=== PATIENT | male | born 1980 | race Caucasian/White ===

== ENCOUNTER 2020-07-10 13:37 | Emergency (ER) | payer MEDICAID, SELFPAY ==
--- NOTE | 2020-07-10 | CT_ITS ---
EXAMINATION: CT ABDOMEN AND PELVIS WITHOUT CONTRAST CLINICAL INFORMATION: Right flank pain COMPARISON: 02/08/2017 TECHNIQUE: Multidetector volumetric imaging was performed from the superior aspect of the liver through the pubic symphysis. Sagittal and coronal reformatted images were obtained on the technologist's workstation. This CT examination was performed using dose optimization techniques as appropriate, variously including the following: *Automated exposure control *Adjustment of mA and/or kV according to patient size (this includes techniques or standardized protocols for targeted exams where dose is matched to indication/reason for exam; i.e. extremities or head) *Use of iterative reconstruction technique DLP: 460 mGy-cm FINDINGS: LUNG BASES: The visualized lung bases are unremarkable. LIVER, GALLBLADDER, AND BILIARY TREE: The liver is normal in size, shape, and attenuation. No focal hepatic lesion or biliary ductal dilatation is present. The gallbladder is unremarkable with no evidence of radiopaque gallstones, gallbladder wall thickening, or obvious pericholecystic inflammatory changes. PANCREAS: Unremarkable. SPLEEN: Unremarkable. ADRENAL GLANDS: Unremarkable. KIDNEYS AND URETERS: There is a 4 x 3 mm calculus in the distal right ureter with minimal hydroureteronephrosis. The location of this obstructing calculus is similar to that on the study dated 02/08/2017. There are a few punctate, nonobstructing calculi in both kidneys, the largest measuring 2 mm in the midpole of the left kidney. BLADDER: Unremarkable. GASTROINTESTINAL TRACT: The small and large bowel are unremarkable. The appendix is unremarkable. ABDOMINAL WALL: No significant hernia is appreciated. LYMPH NODES: Normal. VASCULAR: Unremarkable. PELVIC VISCERA: Unremarkable. OSSEOUS STRUCTURES: Unremarkable. IMPRESSION: There is a 4 x 3 mm obstructing calculus in the distal right ureter with minimal hydroureteronephrosis. Several faint, punctate calculi in both kidneys.
--- NOTE | 2020-07-10 14:19 | ED_ITS ---
HPI - Male Genitourinary General Chief complaint: Abdominal Pain Stated complaint: flank pain Time Seen by Provider: 07/10/20 14:15 Source: patient Mode of arrival: ambulatory Limitations: no limitations History of Present Illness HPI Narrative: Progressively worsening right-sided flank pain now radiating to the right side groin for the past 3 days. Had similar episode of pain several years ago where he had a kidney stone. Pain becoming more severe and now unbearable. There was some blood in the urine 3 days ago that resolved. There is no fever. No dysuria. No urethral discharge. No concern for STI. No previous history of STI or UTI. Onset (ago): day(s) (3 days ) Duration: constant Location: right inguinal region and right flank Radiation: abdomen Severity: severe Severity scale (1-10): 10 Quality: aching and sharp Relieving factors: none Exacerbating factors: none Associated symptoms: Reports denies other symptoms Related Data Previous Rx's Medication Instructions Recorded ibuprofen 800 mg PO Q8H PRN #30 tab 07/10/20 oxycodone 5 mg PO Q8H PRN #15 tab 07/10/20 tamsulosin [Flomax] 0.4 mg PO DAILY #7 cap 07/10/20 Allergies Allergy/AdvReac Type Severity Reaction Status Date / Time seafood Allergy Swelling Verified 07/10/20 14:24 Review of Systems Review of Systems: Constitutional: No Weight loss, No Fever, No Chills, No Night Sweats, No Fatigue, No Malaise ENT/Mouth: No Hearing loss, No Ear Pain, No Nasal Congestion, No Sinus Pain, No Hoarseness, No sore throat, No Rhinorrhea, No Swallowing Difficulty Eyes: No Eye Pain, No Swelling, No Redness, No Foreign Body, No Discharge, No Vision Changes Cardiovascular: No Chest Pain, No SOB, No Dyspnea on Exertion, No Orthopnea, No Edema, No Palpitations Respiratory: No Cough, No Sputum, No Wheezing, No Smoke Exposure, No Dyspnea Gastrointestinal: + Nausea, No Vomiting, No Diarrhea, No Constipation, + right flank/ abdominal Pain, No Hematochezia, No Melena Genitourinary: no irregular bleeding, No Dysuria, No Urinary Frequency, No Hematuria, No Urinary Incontinence, No Urgency, No Flank Pain, No Urinary Flow Changes, No Hesitancy Musculoskeletal: No joint pain, No Myalgias, No Joint Swelling Skin: No Skin Lesions, No rash Neuro: No Weakness, No Numbness, No Paresthesias, No Loss of Consciousness, No Dizziness, No Headache Psych: No Anxiety/Panic, No Depression, No SI/HI/AH/VH, No Social Issues, Heme/Lymph: No Bruising, No Bleeding,No Lymphadenopathy Endocrine: No Polyuria, No Polydipsia, No Temperature Intolerance Yes all other systems are reviewed and are negative [facility] Past Medical History Medical History (Updated 07/11/20 @ 00:00 by Emely Finch) Flank pain Surgical History No significant past surgical history Social History Social History Alcohol intake: never Smoking Status: Current some day smoker Use of substances other than those prescribed or required for medical reasons: Yes Substance Use Type: Marijuana Substance Use Frequency: Occasionally Advance Directives: No Advance Directives Information Provided: Yes Physical Exam Vital Signs and I&O and Narrative: Vital Signs and I&O: Vital Signs Temp 97.8 F 07/10/20 14:28 Pulse 71 07/10/20 14:28 Resp 14 07/10/20 14:28 BP 137/80 07/10/20 14:28 Pulse Ox 99 07/10/20 14:28 Intake & Output 07/10/20 07/11/20 07/11/20 18:59 06:59 18:59 Intake Total 1000 / 1000 Balance 1000 / 1000 Weight 68.039 kg Intake: Intake, IV Amoun t 1000 / 1000 0.9 % Sodium C hloride 1,000 ml 1000 / 1000 @ 999 mls/hr I VCONT .Q1H1M [facility] Rx#:[id number] Body Mass Index 25.7 Const: General: cooperative, healthy appearing and acute distress (in pain ); No intoxicated appearing Nutritional Appearance: average body habitus Orientation/consciousness: patient oriented x3 HENMT: Head: Yes normal to inspection Ears: hearing grossly normal bilaterally Eyes: General: appearance normal, both eyes and all related structures Neck: Neck: Yes normal visual inspection, Yes positive Brudzinski's sign, Yes positive Kernig's sign and Yes tender Thyroid: Thyroid normal Chest: Chest palpation & inspection: normal inspection of the chest Resp: Effort & Inspection: normal respiratory effort Cardio: Jugular venous distension: no JVD Rate: regular rate Rhythm: regular rhythm GI: Inspection: Yes normal to inspection Percussion: Yes normal to percussion Auscultation: normal bowel sounds : General: Yes CVA tenderness (right ) Back/Spine/Pelvis: Back: CVA tenderness (right ) Skin: General skin exam: no rashes or lesions noted Neuro: General: patient oriented x3 Extrem: General: Yes normal to inspection Course Course Course Narrative: Labs shows slight leukocytosis of 13 likely stress. UA positive RBC but no WBC, nitrate or bacteria. No findings consistent with infection. CT of the abdomen pelvis without contrast shows there is a 3 x 4 mm obstructing calculi in the distal right ureter with minimal hydronephrosis. Several faint puncture when calculi in the both kidneys. Patient received a single dose of IV Zofran and morphine and Flomax. He is currently pain free. Will discharge home with urine strainer, analgesia, NSAIDs and follow with Urology. Well nontoxic appearing. Stable for discharge. MDM - Male Genitourinary Differential Diagnosis Differential diagnosis: Likely urinary tract infection and urethritis ( renal calculi, hydro); Unlikely epididymitis, genital herpes simplex, prostatitis, acute retention of urine and inguinal hernia Lab Data Result diagrams: 07/10/20 15:13 07/10/20 16:39 Labs: Lab Results 07/10/20 07/10/20 07/10/20 Range/Units 15:13 15:13 15:13 WBC 13.6 H (4.8-10.8) X10*3/uL RBC 4.90 (4.60-5.80) X10*6/uL Hgb 14.9 (14.0-18.0) g/dl Hct 43.5 (42-52) % MCV 88.8 (80-98) fL MCH 30.4 (27.0-33.0) pg MCHC 34.3 (31.0-36.0) g/dl RDW 13.7 (11.0-16.0) % Plt Count 420 H (160-400) X10*3/uL MPV 9.9 (9.4-12.4) fL Immature Gran % (Auto) 0.2 (0.0-0.4) % Neut % (Auto) 73.4 H (45-73) % Lymph % (Auto) 19.7 L (20-40) % [place] % (Auto) 5.1 (2-11) % Eos % (Auto) 1.1 (0-4) % Baso % (Auto) 0.5 (0-2) % Neut # (Auto) 10.0 H (2.0-8.3) X10*3/uL Lymph # (Auto) 2.7 (1.2-4.9) X10*3/uL [place] # (Auto) 0.7 (0.1-1.2) X10*3/uL Eos # (Auto) 0.2 (0.0-0.4) X10*3/uL Baso # (Auto) 0.1 (0.0-0.2) X10*3/uL Abs Immat Gran (auto) 0.03 (0.00-0.03) X10*3/uL Absolute Nucleated RBC 0.000 (0.0-0.012) X10*3/uL Nucleated RBC % (auto) 0.0 (0.0-0.2) /100WBC Hold Blue Top SEE NOTE Sodium (135-145) mmol/L Potassium (3.3-5.1) mmol/l Chloride (96-108) mmol/L Carbon Dioxide (22-29) mmol/L Anion Gap (12-20) BUN (9-16) mg/dL Creatinine (0.5-1.4) mg/dL Estim Creat Clear Calc Estimated GFR Random Glucose (60-115) mg/dL Calcium (8.4-10.2) mg/dL Total Bilirubin (0.0-1.0) mg/dL Direct Bilirubin (0.0-0.5) mg/dL AST (5-37) U/L ALT (0-40) U/L Alkaline Phosphatase (39-117) U/L Total Protein (6.5-8.0) g/dL Albumin (3.5-5.0) g/dL Urine Color YELLOW Urine Appearance CLOUDY Urine pH 7.5 (5.0-8.0) Ur Specific [place] 1.020 (1.005-1.025) Urine Protein TRACE (NEG-TRACE) MG/DL Urine Glucose (UA) NEG (NEG) MG/DL Urine Ketones NEG (NEG) MG/DL Urine Blood 3+ H (NEG) Urine Nitrite NEG (NEG) Ur Leukocyte Esterase NEG (NEG) Urine RBC 76-150 H (0) /HPF Urine WBC 1-4 (0-4) /HPF Ur Squamous Epith Cells NONE /LPF Urine Bacteria TRACE /LPF Urine Mucus TRACE /LPF 07/10/20 Range/Units 16:39 WBC (4.8-10.8) X10*3/uL RBC (4.60-5.80) X10*6/uL Hgb (14.0-18.0) g/dl Hct (42-52) % MCV (80-98) fL MCH (27.0-33.0) pg MCHC (31.0-36.0) g/dl RDW (11.0-16.0) % Plt Count (160-400) X10*3/uL MPV (9.4-12.4) fL Immature Gran % (Auto) (0.0-0.4) % Neut % (Auto) (45-73) % Lymph % (Auto) (20-40) % [place] % (Auto) (2-11) % Eos % (Auto) (0-4) % Baso % (Auto) (0-2) % Neut # (Auto) (2.0-8.3) X10*3/uL Lymph # (Auto) (1.2-4.9) X10*3/uL [place] # (Auto) (0.1-1.2) X10*3/uL Eos # (Auto) (0.0-0.4) X10*3/uL Baso # (Auto) (0.0-0.2) X10*3/uL Abs Immat Gran (auto) (0.00-0.03) X10*3/uL Absolute Nucleated RBC (0.0-0.012) X10*3/uL Nucleated RBC % (auto) (0.0-0.2) /100WBC Hold Blue Top Sodium 140 (135-145) mmol/L Potassium 4.2 (3.3-5.1) mmol/l Chloride 110 H (96-108) mmol/L Carbon Dioxide 21 L (22-29) mmol/L Anion Gap 13 (12-20) BUN 15 (9-16) mg/dL Creatinine 0.89 (0.5-1.4) mg/dL Estim Creat Clear Calc 95.1 Estimated GFR > 60 Random Glucose 79 (60-115) mg/dL Calcium 8.7 (8.4-10.2) mg/dL Total Bilirubin 0.5 (0.0-1.0) mg/dL Direct Bilirubin 0.2 (0.0-0.5) mg/dL AST 16 (5-37) U/L ALT 14 (0-40) U/L Alkaline Phosphatase 83 (39-117) U/L Total Protein 6.6 (6.5-8.0) g/dL Albumin 4.1 (3.5-5.0) g/dL Urine Color Urine Appearance Urine pH (5.0-8.0) Ur Specific [place] (1.005-1.025) Urine Protein (NEG-TRACE) MG/DL Urine Glucose (UA) (NEG) MG/DL Urine Ketones (NEG) MG/DL Urine Blood (NEG) Urine Nitrite (NEG) Ur Leukocyte Esterase (NEG) Urine RBC (0) /HPF Urine WBC (0-4) /HPF Ur Squamous Epith Cells /LPF Urine Bacteria /LPF Urine Mucus /LPF Imaging Data abdomen/pelvis CT without contrast: Radiologist's impression: [place] [id number] CT Scan Report Signed Patient: Matt Peguero IMR#: [id number] : 1980Acct:[id number] Age/Sex: 39 / MADM Date: 07/10/20 Loc: HO.ED Attending Dr: Ordering Physician: Martinez Garsia NP Date of Service: 07/10/20 Procedure(s): CT abdomen pelvis wo con Accession Number(s): [id number] cc: ~ EXAMINATION: CT ABDOMEN AND PELVIS WITHOUT CONTRAST CLINICAL INFORMATION: Right flank pain COMPARISON: 02/08/2017 TECHNIQUE: Multidetector volumetric imaging was performed from the superior aspect of the liver through the pubic symphysis. Sagittal and coronal reformatted images were obtained on the technologist's workstation. This CT examination was performed using dose optimization techniques as appropriate, variously including the following: *Automated exposure control *Adjustment of mA and/or kV according to patient size (this includes techniques or standardized protocols for targeted exams where dose is matched to indication/reason for exam; i.e. extremities or head) *Use of iterative reconstruction technique DLP: 460 mGy-cm FINDINGS: LUNG BASES: The visualized lung bases are unremarkable. LIVER, GALLBLADDER, AND BILIARY TREE: The liver is normal in size, shape, and attenuation. No focal hepatic lesion or biliary ductal dilatation is present. The gallbladder is unremarkable with no evidence of radiopaque gallstones, gallbladder wall thickening, or obvious pericholecystic inflammatory changes. PANCREAS: Unremarkable. SPLEEN: Unremarkable. ADRENAL GLANDS: Unremarkable. KIDNEYS AND URETERS: There is a 4 x 3 mm calculus in the distal right ureter with minimal hydroureteronephrosis. The location of this obstructing calculus is similar to that on the study dated 02/08/2017. There are a few punctate, nonobstructing calculi in both kidneys, the largest measuring 2 mm in the midpole of the left kidney. BLADDER: Unremarkable. GASTROINTESTINAL TRACT: The small and large bowel are unremarkable. The appendix is unremarkable. ABDOMINAL WALL: No significant hernia is appreciated. LYMPH NODES: Normal. VASCULAR: Unremarkable. PELVIC VISCERA: Unremarkable. OSSEOUS STRUCTURES: Unremarkable. IMPRESSION: There is a 4 x 3 mm obstructing calculus in the distal right ureter with minimal hydroureteronephrosis. Several faint, punctate calculi in both kidneys. Dictated By:NATANAEL DOS SANTOS MD Signed By:<Electronically signed by NATANAEL DOS SANTOS MD in OV>07/10/20 1503 DD/ 1446 TD/TT: [employer] [facility]: DM Discharge Plan Discharge Clinical Impression: Calculus of kidney Patient Disposition: Home, Self-Care Instructions: Kidney Stones (ED), How to Strain Your Urine (ED) Additional Instructions: Please follow-up with urology Dr. Jensen Take medication prescribed Push fluids Use urine strainer Return for concerns or worsening symptoms otherwise follow-up instruction Thank you Prescriptions: New oxycodone 5 mg tablet 5 mg PO Q8H PRN (Reason: pain) Qty: 15 RF: 0 tamsulosin [Flomax] 0.4 mg capsule 0.4 mg PO DAILY Qty: 7 RF: 0 ibuprofen 800 mg tablet 800 mg PO Q8H PRN (Reason: pain) Qty: 30 RF: 0 Referrals: Robert Jensen MD [Physician] - 2 days Interventions: ED Discharge Assessment Last Done: 07/10/20 16:53 Discharge Date/Time: 07/10/20 16:56
[2020-07-10 14:28] VITALS: BP 137/80; PULSE 71; RESP 14; TEMP 36.6; O2SAT 99; BMI 25.7
[2020-07-10] MEDS: Morphine Sulfate 4 MG/ML CARTRIDGE IVPUSH (15:21)
[2020-07-10] MEDS: 0.9 % Sodium Chloride 1,000 ML 999 ML IVCONT (15:21)
[2020-07-10] MEDS: ondansetron HCL 4 MG/2 ML VIAL IVPUSH (15:21)
[2020-07-10 15:23] LABS: MANUAL DIFF FLAG NO
[2020-07-10 15:27] LABS: Basophils Absolute Auto 0.1 X10*3/uL (0.0-0.2); Basophils Percent Auto 0.5 % (0-2); Eosinophils Absolute Auto 0.2 X10*3/uL (0.0-0.4); Eosinophils Percent Auto 1.1 % (0-4); Hematocrit 43.5 % (42-52); Hemoglobin 14.9 g/dl (14.0-18.0); Imm Gran Abs Auto 0.03 X10*3/uL (0.00-0.03); Imm Gran Pct Auto 0.2 % (0.0-0.4); Lymphocytes Absolute Auto 2.7 X10*3/uL (1.2-4.9); Lymphocytes Percent Auto 19.7 % (20-40); Mean Corpuscular HGB Conc 34.3 g/dl (31.0-36.0); Mean Corpuscular Hemoglobin 30.4 pg (27.0-33.0); Mean Corpuscular Volume 88.8 fL (80-98); Mean Platelet Volume 9.9 fL (9.4-12.4); Monocytes Absolute Auto 0.7 X10*3/uL (0.1-1.2); Monocytes Percent Auto 5.1 % (2-11); Neutrophils Percent Auto 73.4 % (45-73); Platelet Count 420 X10*3/uL (160-400); Red Cell Distribution Width 13.7 % (11.0-16.0); White Blood Count 13.6 X10*3/uL (4.8-10.8)
[2020-07-10 15:29] LABS: Glucose Urine UA NEG (NEG); Leukocyte Esterase Urine NEG (NEG); Nitrite Urine NEG (NEG); PH 7.5 (5.0-8.0); Urine Blood 3+ (NEG); Urine Ketones NEG (NEG); Urine Protein TRACE MG/DL (NEG-TRACE)
[2020-07-10 15:32] LABS: Appearance Urine CLOUDY; Color Urine YELLOW
[2020-07-10 15:46] LABS: Bacteria Urine TRACE /LPF; Mucus Urine TRACE /LPF
[2020-07-10] MEDS: Tamsulosin HCL 0.4 MG CAPSULE PO (16:06)
[2020-07-10] MEDS: oxyCODONE HCl Immed Release 5 MG TABLET 10 MG PO (16:06)
--- NOTE | 2020-07-10 16:09 | PC.NURSE ---
medicated further per emar, tolerating po w/o issue
[2020-07-10 17:17] LABS: Alanine Aminotransferase 14 U/L (0-40); Albumin Level 4.1 g/dL (3.5-5.0); Alkaline Phosphatase 83 U/L (39-117); Anion Gap 13 (12-20); Aspartate Amino Transferase 16 U/L (5-37); Bilirubin Direct 0.2 mg/dL (0.0-0.5); Bilirubin Total 0.5 mg/dL (0.0-1.0); Blood Urea Nitrogen 15 mg/dL (9-16); Calcium 8.7 mg/dL (8.4-10.2); Carbon Dioxide 21 mmol/L (22-29); Chloride 110 mmol/L (96-108); Creatinine Clr Calc Pharmacy 95.1; Estimated Glomerular Filt Rate > 60; Glucose Random 79 mg/dL (60-115); Potassium 4.2 mmol/l (3.3-5.1); Sodium 140 mmol/L (135-145); Total Protein 6.6 g/dL (6.5-8.0)
== END 2020-07-10 16:56 | disposition home or self-care (01) ==
PROVIDERS: Nurse Practitioner Primary Care; Emergency Provider Emergency Medicine
DX: N20.0 Calculus of kidney (principal); F17.200 Nicotine dependence, unspecified, uncomplicated
CPT/HCPCS: 36415; 74176; 80048; 80076; 81001; 85025; 96361; 96374; 96375; 99284; J2270; J2405

== ENCOUNTER → 2020-07-26 09:06 | Outpatient (BNVA) | payer MEDICAID, SELFPAY | PROVIDERS: Visit Provider Urology | DX: N20.0 Calculus of kidney (principal) | CPT/HCPCS: 99204 ==

== ENCOUNTER 2022-05-18 10:26 | Emergency (ER) | payer MEDICAID, SELFPAY ==
--- NOTE | ~2022-05-18 | CT_ITS ---
EXAMINATION: CT ABDOMEN AND PELVIS WITHOUT CONTRAST CLINICAL INFORMATION: Radiating left flank pain. COMPARISON: 07/10/2020 and the abdomen and pelvis. TECHNIQUE: Multidetector volumetric imaging was performed from the superior aspect of the liver through the pubic symphysis. Sagittal and coronal reformatted images were obtained on the technologist's workstation. Plaque of intravenous and oral contrast limits visceral evaluation. This CT examination was performed using dose optimization techniques as appropriate, variously including the following: *Automated exposure control *Adjustment of mA and/or kV according to patient size (this includes techniques or standardized protocols for targeted exams where dose is matched to indication/reason for exam; i.e. extremities or head) *Use of iterative reconstruction technique DLP: 414 mGy-cm FINDINGS: LUNG BASES: The visualized lung bases are unremarkable. LIVER, GALLBLADDER, AND BILIARY TREE: Unremarkable. PANCREAS: Unremarkable. SPLEEN: Unremarkable. ADRENAL GLANDS: Unremarkable. KIDNEYS AND URETERS: Mild left hydronephrosis and perinephric stranding caused by a 0.5 cm calculus at the level the proximal one third of the left ureter (image 43, series 5). Several intrarenal calculi are seen bilaterally. A inbound call center representative calculus in the lower pole the right kidney measures 0.6 cm (image 40, series 5). BLADDER: Unremarkable. GASTROINTESTINAL TRACT: The stomach, small bowel and appendix are unremarkable. The colon and rectum are unremarkable. ABDOMINAL WALL: No significant hernia is appreciated. LYMPH NODES: No lymphadenopathy. VASCULAR: Unremarkable. PELVIC VISCERA: Unremarkable. OSSEOUS STRUCTURES: L5-S1 mild degenerative disc disease. Compression deformity of the anterior margin of the superior plate of S1 with moderate anterior osteophyte formation. The remainder of the vertebral bodies are intact. The soft tissues are unremarkable. CT/CT abdomen pelvis wo con IMPRESSION: 1. Mild left hydronephrosis caused by a 0.5 cm calculus at the level the proximal one third of the left ureter. Several intrarenal calculi bilaterally. 2. L5-S1 mild degenerative disc disease. Anterior compression deformity of the superior endplate of S1 does not appear acute and could be degenerative in nature and/or secondary to old injury. Correlate with patient history.
[2022-05-18 10:34] VITALS: BP 131/80; PULSE 78; RESP 18; TEMP 36.6; O2SAT 98; BMI 23.5
[2022-05-18 12:11] LABS: Basophils Absolute Auto 0.1 X10*3/uL (0.0-0.2); Basophils Percent Auto 0.3 % (0-2); Hematocrit 47.2 % (42.0-52.0); Hemoglobin 15.8 g/dl (14.0-18.0); Imm Gran Abs Auto 0.12 X10*3/uL (0.00-0.03); Imm Gran Pct Auto 0.6 % (0.0-0.4); Lymphocytes Absolute Auto 1.1 X10*3/uL (1.2-4.9); Lymphocytes Percent Auto 5.1 % (20-40); MANUAL DIFF FLAG SCAN; Mean Corpuscular HGB Conc 33.5 g/dl (31.0-36.0); Mean Corpuscular Hemoglobin 29.9 pg (27.0-33.0); Mean Corpuscular Volume 89.2 fL (80.0-98.0); Mean Platelet Volume 9.6 fL (9.4-12.4); Monocytes Absolute Auto 0.5 X10*3/uL (0.1-1.2); Monocytes Percent Auto 2.3 % (2-11); Neutrophils Absolute Auto 19.9 x10*3/uL (2.0-8.3); Neutrophils Percent Auto 91.7 % (45-73); Platelet Count 427 X10*3/uL (160-400); Red Blood Count 5.29 X10*6/uL (4.60-5.80); SCAN SMEAR FLAG 1; White Blood Count 21.7 X10*3/uL (4.8-10.8)
[2022-05-18 12:17] VITALS: BP 165/82; PULSE 51; RESP 16; O2SAT 99
[2022-05-18 12:21] LABS: Alanine Aminotransferase 20 U/L (0-40); Albumin Level 4.5 g/dL (3.5-5.0); Alkaline Phosphatase 89 U/L (39-117); Anion Gap 17 (12-20); Aspartate Amino Transferase 20 U/L (5-37); Bilirubin Direct 0.2 mg/dL (0.0-0.5); Bilirubin Total 0.4 mg/dL (0.0-1.0); Blood Urea Nitrogen 16 mg/dL (9-16); Calcium 9.8 mg/dL (8.4-10.2); Carbon Dioxide 24 mmol/L (22-29); Chloride 108 mmol/L (96-108); Creatinine Clr Calc Pharmacy 78.5; Estimated Glomerular Filt Rate > 60; Glucose Random 123 mg/dL (60-115); Lipase 13 U/L (8-78); Sodium 144 mmol/L (135-145); Total Protein 7.4 g/dL (6.5-8.0)
[2022-05-18 12:34] LABS: SLIDE REVIEW VERIFIED
[2022-05-18] MEDS: Ketorolac Tromethamine 30 MG/ML VIAL IVPUSH (12:56)
[2022-05-18 12:57] VITALS: RESP 18
[2022-05-18] MEDS: ondansetron HCL 4 MG/2 ML VIAL IVPUSH (12:57)
[2022-05-18] MEDS: Morphine Sulfate 10 MG/ML CARTRIDGE 8 MG IVPUSH (12:57)
[2022-05-18] MEDS: 0.9 % Sodium Chloride 1,000 ML 999 ML IVCONT (12:57)
[2022-05-18 15:34] VITALS: BP 151/74; PULSE 50; RESP 16; TEMP 36.6; O2SAT 96
[2022-05-18 15:34] LABS: Basophils Absolute Auto 0.1 X10*3/uL (0.0-0.2); Basophils Percent Auto 0.3 % (0-2); Hematocrit 45.7 % (42.0-52.0); Hemoglobin 15.8 g/dl (14.0-18.0); Imm Gran Abs Auto 0.11 X10*3/uL (0.00-0.03); Imm Gran Pct Auto 0.4 % (0.0-0.4); Lymphocytes Percent Auto 3.8 % (20-40); MANUAL DIFF FLAG SCAN; Mean Corpuscular HGB Conc 34.6 g/dl (31.0-36.0); Mean Corpuscular Hemoglobin 30.9 pg (27.0-33.0); Mean Corpuscular Volume 89.3 fL (80.0-98.0); Mean Platelet Volume 10.2 fL (9.4-12.4); Monocytes Absolute Auto 1.1 X10*3/uL (0.1-1.2); Monocytes Percent Auto 4.3 % (2-11); Neutrophils Absolute Auto 22.7 x10*3/uL (2.0-8.3); Neutrophils Percent Auto 91.2 % (45-73); Platelet Count 365 X10*3/uL (160-400); Red Blood Count 5.12 X10*6/uL (4.60-5.80); Red Cell Distribution Width 14.1 % (11.0-16.0); SCAN SMEAR FLAG 1
[2022-05-18 15:43] VITALS: RESP 18
[2022-05-18 15:43] LABS: Anion Gap 15 (12-20); Blood Urea Nitrogen 16 mg/dL (9-16); Calcium 9.7 mg/dL (8.4-10.2); Carbon Dioxide 25 mmol/L (22-29); Chloride 108 mmol/L (96-108); Creatinine Clr Calc Pharmacy 74.7; Estimated Glomerular Filt Rate > 60; Glucose Random 109 mg/dL (60-115); Potassium 5.1 mmol/L (3.3-5.1); Sodium 143 mmol/L (135-145)
[2022-05-18 15:43] LABS: Appearance Urine HAZY; Color Urine DK YELLOW; Glucose Urine UA Negative (NEG); Leukocyte Esterase Urine Trace (Negative); Nitrite Urine NEG (NEG); PH 6.5 (5.0-8.0); Specific Gravity - Urine 1.025 (1.005-1.025); UACC Culture Trigger NO; Urine Blood Large (3+) (NEG); Urine Ketones Negative (NEG)
[2022-05-18] MEDS: Tamsulosin HCL 0.4 MG CAPSULE PO (15:43)
[2022-05-18] MEDS: Morphine Sulfate 4 MG/ML CARTRIDGE IVPUSH (15:43)
[2022-05-18 15:47] LABS: Urine Protein 100 (2+) MG/DL (NEG-TRACE)
--- NOTE | 2022-05-18 15:56 | ED_ITS ---
HPI - Abdominal Pain General Chief Complaint: Abdominal Pain Stated Complaint: abd pain, kidney stone? Time Seen by Provider: 05/18/22 11:22 History of Present Illness HPI narrative: Patient complains of left flank pain and left abdominal pain radiating to the groin which started 2 days ago and has gotten worse today, similar to prior kidney stone episodes, he denies any dysuria denies fever, he is nauseous but has not vomited, pain is described as 07/13 Related Data Previous Rx's Medication Instructions Recorded ibuprofen 800 mg tablet 800 mg PO Q8H PRN pain #30 tabs 07/10/20 oxycodone 5 mg tablet 5 mg PO Q8H PRN pain #15 tabs 07/10/20 tamsulosin 0.4 mg capsule (Flomax) 0.4 mg PO DAILY #7 caps 07/10/20 ondansetron HCl 4 mg tablet 4 mg PO Q8H PRN nausea and 07/11/20 (Zofran) vomiting #10 tabs pyridoxine (vitamin B6) 100 mg 100 mg PO DAILY #90 tabs 07/26/20 tablet tramadol 50 mg tablet 50 mg PO Q8H PRN pain #15 tabs 08/15/20 ibuprofen 600 mg tablet 600 mg PO Q6H PRN pain #20 tabs 05/18/22 ondansetron 4 mg disintegrating 4 mg PO Q6H PRN nausea and 05/18/22 tablet vomiting #10 tabs oxycodone 5 mg tablet 5 mg PO Q6H PRN pain #20 tabs 05/18/22 tamsulosin 0.4 mg capsule 0.4 mg PO DAILY #7 caps 05/18/22 Allergies Allergy/AdvReac Type Severity Reaction Status Date / Time seafood Allergy Swelling Verified 07/10/20 14:24 Review of Systems Review of Systems Positive for left flank and left abdominal pain radiating to the groin Negatives no fever no chills no dizziness no weakness no fainting no feeling faint no headache no neck pain no chest pain no shortness of breath no vomiting no diarrhea no dysuria no frequency no blood in the urine no skin rash no numbness or weakness Yes all other systems are reviewed and are negative PMFSH Past Medical History Source: nursing notes reviewed Medical History (Updated 05/18/22 @ 16:22 by PINEDA Miguel) Flank pain Surgical History No significant past surgical history Social History Social History Alcohol intake: never Substance Use Type: Marijuana Advance Directives: Yes Advance Directives Information Provided: Yes Advance Directives on File: No Physical Exam ED Vital Signs: Vital Signs - 24 hr 05/18/22 10:34 05/18/22 12:17 05/18/22 12:57 Temperature 98 F Pulse Rate 78 51 Respiratory Rate 18 16 18 Blood Pressure 131/80 165/82 H Pulse Oximetry 98 99 Oxygen Delivery Method Room Air Room Air 05/18/22 15:34 05/18/22 15:43 Temperature 98 F Pulse Rate 50 Respiratory Rate 16 18 Blood Pressure 151/74 H Pulse Oximetry 96 Oxygen Delivery Method Room Air BMI result Body Mass Index 23.5 General appearance very uncomfortable due to flank pain The eyes anicteric no pallor The pharynx is clear with moist mucous membranes Neck is supple Chest clear to auscultation bilateral Heart no murmur The abdomen had some left flank tenderness, there was some left CVA tenderness there was mild left suprapubic tenderness as well no rebound no guarding Extremities full range of motion x4 Skin no rash Neuro no focal motor or sensory deficits Course Course Course Narrative: CT scan showed mild left hydronephrosis and perinephric stranding caused by a 0.5 cm stone at the level of the proximal 1/3 of the left ureter No other acute findings Renal function was normal as well as electrolytes CBc CT did show a white count of 25 which is likely from his pain and stress Patient was medicated with morphine and Zofran with full relief of his discomfort He has no fever no evidence of urinary tract infection on urinalysis and no UTI symptoms Patient was discharged with diagnosis of kidney stone MDM - Abdominal Pain Lab Data Result diagrams: 05/18/22 15:21 05/18/22 15:21 Labs: Lab Results 05/18/22 05/18/22 05/18/22 Range/Units 11:54 11:54 15:21 WBC 21.7 H 25.0 H (4.8-10.8) X10*3/uL RBC 5.29 5.12 (4.60-5.80) X10*6/uL Hgb 15.8 15.8 (14.0-18.0) g/dl Hct 47.2 45.7 (42.0-52.0) % MCV 89.2 89.3 (80.0-98.0) fL MCH 29.9 30.9 (27.0-33.0) pg MCHC 33.5 34.6 (31.0-36.0) g/dl RDW 14.0 14.1 (11.0-16.0) % Plt Count 427 H 365 (160-400) X10*3/uL MPV 9.6 10.2 (9.4-12.4) fL Immature Gran % (Auto) 0.6 H 0.4 (0.0-0.4) % Neut % (Auto) 91.7 H 91.2 H (45-73) % Lymph % (Auto) 5.1 L 3.8 L (20-40) % [place] % (Auto) 2.3 4.3 (2-11) % Eos % (Auto) 0.0 0.0 (0-4) % Baso % (Auto) 0.3 0.3 (0-2) % Lymph # (Auto) 1.1 L 1.0 L (1.2-4.9) X10*3/uL [place] # (Auto) 0.5 1.1 (0.1-1.2) X10*3/uL Eos # (Auto) 0.0 0.0 (0.0-0.4) X10*3/uL Baso # (Auto) 0.1 0.1 (0.0-0.2) X10*3/uL Abs Immat Gran (auto) 0.12 H 0.11 H (0.00-0.03) X10*3/uL Absolute Neuts (auto) 19.9 H 22.7 H (2.0-8.3) x10*3/uL Absolute Nucleated RBC 0.000 0.000 (0.0-0.012) X10*3/uL Nucleated RBC % (auto) 0.0 0.0 (0.0-0.2) /100WBC Smear Tech's Comments VERIFIED Sodium 144 (135-145) mmol/L Potassium 5.0 (3.3-5.1) mmol/L Chloride 108 (96-108) mmol/L Carbon Dioxide 24 (22-29) mmol/L Anion Gap 17 (12-20) BUN 16 (9-16) mg/dL Creatinine 1.18 (0.5-1.4) mg/dL Estim Creat Clear Calc 78.5 Estimated GFR > 60 Random Glucose 123 H D (60-115) mg/dL Calcium 9.8 D (8.4-10.2) mg/dL Total Bilirubin 0.4 (0.0-1.0) mg/dL Direct Bilirubin 0.2 (0.0-0.5) mg/dL AST 20 (5-37) U/L ALT 20 (0-40) U/L Alkaline Phosphatase 89 (39-117) U/L Total Protein 7.4 (6.5-8.0) g/dL Albumin 4.5 (3.5-5.0) g/dL Lipase 13 (8-78) U/L Urine Color Urine Appearance Urine pH (5.0-8.0) Ur Specific [place] (1.005-1.025) Urine Protein (NEG-TRACE) MG/DL Urine Glucose (UA) (NEG) MG/DL Urine Ketones (NEG) MG/DL Urine Blood (NEG) Urine Nitrite (NEG) Ur Leukocyte Esterase (Negative) Urine RBC (0) /HPF Urine WBC (0-4) /HPF Ur Squamous Epith Cells /LPF Calcium Oxalate Crystal /LPF Urine Bacteria /LPF 05/18/22 05/18/22 Range/Units 15:21 15:38 WBC (4.8-10.8) X10*3/uL RBC (4.60-5.80) X10*6/uL Hgb (14.0-18.0) g/dl Hct (42.0-52.0) % MCV (80.0-98.0) fL MCH (27.0-33.0) pg MCHC (31.0-36.0) g/dl RDW (11.0-16.0) % Plt Count (160-400) X10*3/uL MPV (9.4-12.4) fL Immature Gran % (Auto) (0.0-0.4) % Neut % (Auto) (45-73) % Lymph % (Auto) (20-40) % [place] % (Auto) (2-11) % Eos % (Auto) (0-4) % Baso % (Auto) (0-2) % Lymph # (Auto) (1.2-4.9) X10*3/uL [place] # (Auto) (0.1-1.2) X10*3/uL Eos # (Auto) (0.0-0.4) X10*3/uL Baso # (Auto) (0.0-0.2) X10*3/uL Abs Immat Gran (auto) (0.00-0.03) X10*3/uL Absolute Neuts (auto) (2.0-8.3) x10*3/uL Absolute Nucleated RBC (0.0-0.012) X10*3/uL Nucleated RBC % (auto) (0.0-0.2) /100WBC Smear Tech's Comments Sodium 143 (135-145) mmol/L Potassium 5.1 (3.3-5.1) mmol/L Chloride 108 (96-108) mmol/L Carbon Dioxide 25 (22-29) mmol/L Anion Gap 15 (12-20) BUN 16 (9-16) mg/dL Creatinine 1.24 (0.5-1.4) mg/dL Estim Creat Clear Calc 74.7 Estimated GFR > 60 Random Glucose 109 (60-115) mg/dL Calcium 9.7 (8.4-10.2) mg/dL Total Bilirubin (0.0-1.0) mg/dL Direct Bilirubin (0.0-0.5) mg/dL AST (5-37) U/L ALT (0-40) U/L Alkaline Phosphatase (39-117) U/L Total Protein (6.5-8.0) g/dL Albumin (3.5-5.0) g/dL Lipase (8-78) U/L Urine Color [place] YELLOW Urine Appearance HAZY Urine pH 6.5 (5.0-8.0) Ur Specific [place] 1.025 (1.005-1.025) Urine Protein 100 (2+) H (NEG-TRACE) MG/DL Urine Glucose (UA) Negative (NEG) MG/DL Urine Ketones Negative (NEG) MG/DL Urine Blood Large (3+) H (NEG) Urine Nitrite NEG (NEG) Ur Leukocyte Esterase Trace H (Negative) Urine RBC 76-150 H (0) /HPF Urine WBC 5-9 H (0-4) /HPF Ur Squamous Epith Cells TRACE /LPF Calcium Oxalate Crystal 2+ /LPF Urine Bacteria NONE /LPF Discharge Plan Discharge Clinical Impression: Nephrolithiasis Patient Disposition: Home, Self-Care Additional Instructions: Evaluation today did show that you had a kidney stone blocking the ureter on the left side we your pain is This should pass in 1-2 days Follow with your urologist Return to the ER for severe uncontrolled pain vomiting fever infection any worse condition or any concerns Prescriptions: New ondansetron 4 mg tablet,disintegrating 4 mg PO Q6H PRN (Reason: nausea and vomiting) Qty: 10 0RF ibuprofen 600 mg tablet 600 mg PO Q6H PRN (Reason: pain) Qty: 20 0RF oxycodone 5 mg tablet 5 mg PO Q6H PRN (Reason: pain) Qty: 20 0RF Rx Instructions: Partial Fill upon patient request. Narcotic, no driving for 6 hours after taking tamsulosin 0.4 mg capsule 0.4 mg PO DAILY Qty: 7 0RF No Action tramadol 50 mg tablet 50 mg PO Q8H PRN (Reason: pain) Qty: 15 0RF oxycodone 5 mg tablet 5 mg PO Q8H PRN (Reason: pain) Qty: 15 0RF tamsulosin [Flomax] 0.4 mg capsule 0.4 mg PO DAILY Qty: 7 0RF ibuprofen 800 mg tablet 800 mg PO Q8H PRN (Reason: pain) Qty: 30 0RF ondansetron HCl [Zofran] 4 mg tablet 4 mg PO Q8H PRN (Reason: nausea and vomiting) Qty: 10 0RF pyridoxine (vitamin B6) 100 mg tablet 100 mg PO DAILY Qty: 90 1RF Stand Alone Forms: Work/School Release Interventions: ED Discharge Assessment Last Done: 05/18/22 17:39 Discharge Date/Time: 05/18/22 17:39
[2022-05-18 16:05] LABS: UACC CULT YES
[2022-05-18 16:06] LABS: Calcium Oxalate Crystals Urine 2+ /LPF; Squamous Epithelial Cell Urine TRACE /LPF
[2022-05-18] MEDS: oxyCODONE HCl Immed Release 5 MG TABLET 10 MG PO (17:19)
== END 2022-05-18 17:39 | disposition home or self-care (01) ==
PROVIDERS: Physician Assistant Medical; Emergency Provider Emergency Medicine
DX: N13.2 Hydronephrosis with renal and ureteral calculous obstruction (principal); R10.9 Unspecified abdominal pain; F12.90 Cannabis use, unspecified, uncomplicated
CPT/HCPCS: 36415; 74176; 80048; 80076; 81001; 83690; 85025; 87086; 96374; 96375; 96376; 99284; J1885; J2270; J2405

== ENCOUNTER 2023-06-25 03:58 | Day surgery (SDC) | payer MEDICAID, SELFPAY ==
[2023-06-25] VITALS (12 sets, daily range): BP systolic 106–182; BP diastolic 68–83; PULSE 56–87; RESP 16–20; TEMP 36.1–36.6; O2SAT 95–100; BMI 24.2
--- NOTE | ~2023-06-25 | CT_ITS ---
EXAMINATION: CT ABDOMEN AND PELVIS WITHOUT CONTRAST CLINICAL INFORMATION: Right flank pain COMPARISON: 05/18/2022 TECHNIQUE: Multidetector volumetric imaging was performed from the superior aspect of the liver through the pubic symphysis. Sagittal and coronal reformatted images were obtained on the technologist's workstation. This CT examination was performed using dose optimization techniques as appropriate, variously including the following: *Automated exposure control *Adjustment of mA and/or kV according to patient size (this includes techniques or standardized protocols for targeted exams where dose is matched to indication/reason for exam; i.e. extremities or head) *Use of iterative reconstruction technique DLP: 424 mGy-cm FINDINGS: LUNG BASES: The visualized lung bases are unremarkable. LIVER, GALLBLADDER, AND BILIARY TREE: The liver is normal in size, shape, and attenuation. No focal hepatic lesion or biliary ductal dilatation is identified on this noncontrast exam. The gallbladder is unremarkable. PANCREAS: Unremarkable. SPLEEN: Unremarkable. ADRENAL GLANDS: Unremarkable. KIDNEYS AND URETERS: There is a 9 mm calculus at the right ureterovesicular junction as well as a 4 mm calculus in the distal right ureter. There is mild to moderate right hydroureteronephrosis along with perinephric stranding. No left hydronephrosis or ureteral calculus. There is a 3 mm calculus in the mid left kidney. BLADDER: Mildly distended without significant wall thickening. GASTROINTESTINAL TRACT: No evidence of bowel obstruction or significant wall thickening. The appendix is unremarkable. No free fluid or free air is seen. ABDOMINAL WALL: No significant hernia is appreciated. LYMPH NODES: Normal. VASCULAR: Unremarkable. PELVIC VISCERA: Unremarkable. OSSEOUS STRUCTURES: Scattered degenerative changes. CT/CT abdomen pelvis wo IV con IMPRESSION: 1. Right ureterovesicular junction calculus measuring 9 mm with mild to moderate hydroureteronephrosis. Additional 4 mm calculus in the distal right ureter. 2. Left renal calculus measuring 3 mm without hydronephrosis.
--- NOTE | ~2023-06-25 | FL_ITS ---
EXAMINATION: XR FLUOROSCOPY WITH IMAGES CLINICAL INFORMATION: Right ureteral stone. COMPARISON: CT abdomen and pelvis 06/25/2023 TECHNIQUE: Fluoroscopy Supervised By: Dr. Robert Jensen. Fluoroscopy Time: 21.4 seconds. Cumulative Dose: 4.72 mGy. DAP: Gycm2. Images: 2. FINDINGS: Initial image demonstrates filling defect in the right distal ureter suggestive of a stone. Final image demonstrates distal end of a right internal ureteral stent in satisfactory position. FL/FL guidance in OR IMPRESSION: Fluoroscopy guidance for right retrograde exam and stent placement.
--- NOTE | 2023-06-25 04:06 | ED.ABDPAIN ---
HPI - Abdominal Pain General Chief Complaint: Abdominal Pain Stated Complaint: Leg Flank, history of kidney stones Time Seen by Provider: 06/25/23 04:06 Source: patient Mode of arrival: ambulatory Limitations: no limitations History of Present Illness HPI narrative: Patient with a recurrent kidney stones last lithotripsy was in 07/23 comes in with acute onset of sharp pain started at 01:30 before woke up from the sleep localized to the right flank radiated to the right lower abdomen patient with nausea and vomiting no fever no chills no hematuria Related Data Previous Rx's Medication Instructions Recorded ibuprofen 800 mg tablet 800 mg PO Q8H PRN pain #30 tabs 07/10/20 oxycodone 5 mg tablet 5 mg PO Q8H PRN pain #15 tabs 07/10/20 tamsulosin 0.4 mg capsule (Flomax) 0.4 mg PO DAILY #7 caps 07/10/20 ondansetron HCl 4 mg tablet 4 mg PO Q8H PRN nausea and 07/11/20 (Zofran) vomiting #10 tabs pyridoxine (vitamin B6) 100 mg 100 mg PO DAILY #90 tabs 07/26/20 tablet tramadol 50 mg tablet 50 mg PO Q8H PRN pain #15 tabs 08/15/20 ibuprofen 600 mg tablet 600 mg PO Q6H PRN pain #20 tabs 05/18/22 ondansetron 4 mg disintegrating 4 mg PO Q6H PRN nausea and 05/18/22 tablet vomiting #10 tabs oxycodone 5 mg tablet 5 mg PO Q6H PRN pain #20 tabs 05/18/22 tamsulosin 0.4 mg capsule 0.4 mg PO DAILY #7 caps 05/18/22 Allergies Allergy/AdvReac Type Severity Reaction Status Date / Time seafood Allergy Swelling Verified 07/10/20 14:24 Review of Systems Review of Systems Yes all other systems are reviewed and are negative FORMERLY [facility], [facility] Past Medical History Medical History Flank pain Surgical History No significant past surgical history Social History Social History Alcohol intake: never Smoked in Last 30 Days: Yes Use of substances other than those prescribed or required for medical reasons: Yes Substance Use Type: Marijuana Advance Directives: No Advance Directives Information Provided: Yes Physical Exam ED Vital Signs: Vital Signs - 24 hr 06/25/23 04:01 06/25/23 06:30 Temperature 97.8 F Pulse Rate 56 87 Respiratory Rate 20 16 Blood Pressure 163/77 H 182/83 H Pulse Oximetry 96 95 Oxygen Delivery Method Room Air Room Air BMI result Body Mass Index 24.2 Appearance: Alert. Oriented X3. In moderate distress Eyes: No pallor or icterus ENT: Pharynx normal. Oral Mucosa moist Neck: Normal inspection. Neck supple. CVS: Normal heart rate and rhythm. Pulses normal. Respiratory: No respiratory distress. Equal air entry bilateral, no wheezing/rales/rhonchi Abdomen: Soft and nontender. Bowel sounds are present, no mass palpable, R CVA tenderness Skin: Skin warm and dry. Normal skin color. Normal skin turgor. Extremities: No lower extremity edema. No calf tenderness Neuro: Oriented X 3. No motor deficit. Medical Decision Making Medical Decision Making [facility] Narrative: Patient with right renal colic with 9 mm stone at the UV junction with significant hydronephrosis case with Urologist will see the patient in ER for lithotripsy and stent placed Differential Diagnosis Differential Diagnoses: The differential diagnosis associated with the presentation includes UTI/renal colic/ Admission/Observation Consideration of admission/observation: Escalation of care including admission/observation considered Lab Data [facility] Lab Attestation statement: I reviewed the patient's lab results. 06/25/23 04:24 06/25/23 04:24 Labs: Lab Results 06/25/23 06/25/23 Range/Units 04:24 07:07 WBC 18.1 H (4.8-10.8) X10*3/uL RBC 4.79 (4.60-5.80) X10*6/uL Hgb 14.5 (14.0-18.0) g/dl Hct 41.5 L (42.0-52.0) % MCV 86.6 (80.0-98.0) fL MCH 30.3 (27.0-33.0) pg MCHC 34.9 (31.0-36.0) g/dl RDW 13.4 (11.0-16.0) % Plt Count 446 H (160-400) X10*3/uL MPV 9.4 (9.4-12.4) fL Immature Gran % (Auto) 0.4 (0.0-0.4) % Neut % (Auto) 73.7 H (45-73) % Lymph % (Auto) 17.6 L (20-40) % [place] % (Auto) 6.2 (2-11) % Eos % (Auto) 1.5 (0-4) % Baso % (Auto) 0.6 (0-2) % Lymph # (Auto) 3.2 (1.2-4.9) X10*3/uL [place] # (Auto) 1.1 (0.1-1.2) X10*3/uL Eos # (Auto) 0.3 (0.0-0.4) X10*3/uL Baso # (Auto) 0.1 (0.0-0.2) X10*3/uL Abs Immat Gran (auto) 0.07 H (0.00-0.03) X10*3/uL Absolute Neuts (auto) 13.4 H (2.0-8.3) x10*3/uL Absolute Nucleated RBC 0.000 (0.0-0.012) X10*3/uL Nucleated RBC % (auto) 0.0 (0.0-0.2) /100WBC Sodium 143 (135-145) mmol/L Potassium 3.2 L D (3.3-5.1) mmol/L Chloride 108 (96-108) mmol/L Carbon Dioxide 24 (22-29) mmol/L Anion Gap 14 (12-20) BUN 22 H (9-16) mg/dL Creatinine 1.32 (0.5-1.4) mg/dL Estim Creat Clear Calc 67.1 Estimated GFR > 60 Random Glucose 123 H (60-115) mg/dL Calcium 9.7 (8.4-10.2) mg/dL Total Bilirubin 0.5 (0.0-1.0) mg/dL AST 18 (5-37) U/L ALT 14 (0-40) U/L Alkaline Phosphatase 88 (39-117) U/L Total Protein 7.5 (6.5-8.0) g/dL Albumin 4.6 (3.5-5.0) g/dL Urine Color Dark Yellow Urine Appearance Turbid Urine pH 6.0 (5.0-9.0) Ur Specific [place] >= 1.030 H (1.005-1.025) Urine Protein 100 (2+) H (Neg-Trace) mg/dL Urine Glucose (UA) Negative (Negative) mg/dL Urine Ketones 15 (Negative) mg/dL Urine Blood Large (3+) H (Negative) Urine Nitrite Negative (Negative) Ur Leukocyte Esterase Small (1+) H (Negative) Urine RBC >20 H (0-2) /HPF Urine WBC 21-50 H (0-5) /HPF Ur Squamous Epith Cells 0-2 (0-2) /HPF Urine Bacteria None Seen (None Seen) Hyaline Casts 0-2 (0-2) /LPF Radiology Impression Discussion of test interpretation with radiology: I have reviewed the radiologist's reading. Radiologist Impression: [place] [id number] CT Scan Report Signed Patient: Matt Peguero I MR#: [id number] : 1980 Acct:[id number] Age/Sex: 42 / M ADM Date: 06/25/23 Loc: .ED Attending Dr: Ordering Physician: Sorin Meehan MD Date of Service: 06/25/23 Procedure(s): CT abdomen pelvis wo IV con Accession Number(s): [id number] cc: [facility]; Sorin Meehan MD~ EXAMINATION: CT ABDOMEN AND PELVIS WITHOUT CONTRAST CLINICAL INFORMATION: Right flank pain COMPARISON: 05/18/2022 TECHNIQUE: Multidetector volumetric imaging was performed from the superior aspect of the liver through the pubic symphysis. Sagittal and coronal reformatted images were obtained on the technologist's workstation. This CT examination was performed using dose optimization techniques as appropriate, variously including the following: *Automated exposure control *Adjustment of mA and/or kV according to patient size (this includes techniques or standardized protocols for targeted exams where dose is matched to indication/reason for exam; i.e. extremities or head) *Use of iterative reconstruction technique DLP: 424 mGy-cm FINDINGS: LUNG BASES: The visualized lung bases are unremarkable. LIVER, GALLBLADDER, AND BILIARY TREE: The liver is normal in size, shape, and attenuation. No focal hepatic lesion or biliary ductal dilatation is identified on this noncontrast exam. The gallbladder is unremarkable. PANCREAS: Unremarkable. SPLEEN: Unremarkable. ADRENAL GLANDS: Unremarkable. KIDNEYS AND URETERS: There is a 9 mm calculus at the right ureterovesicular junction as well as a 4 mm calculus in the distal right ureter. There is mild to moderate right hydroureteronephrosis along with perinephric stranding. No left hydronephrosis or ureteral calculus. There is a 3 mm calculus in the mid left kidney. BLADDER: Mildly distended without significant wall thickening. GASTROINTESTINAL TRACT: No evidence of bowel obstruction or significant wall thickening. The appendix is unremarkable. No free fluid or free air is seen. ABDOMINAL WALL: No significant hernia is appreciated. LYMPH NODES: Normal. VASCULAR: Unremarkable. PELVIC VISCERA: Unremarkable. OSSEOUS STRUCTURES: Scattered degenerative changes. CT/CT abdomen pelvis wo IV con IMPRESSION: 1. Right ureterovesicular junction calculus measuring 9 mm with mild to moderate hydroureteronephrosis. Additional 4 mm calculus in the distal right ureter. 2. Left renal calculus measuring 3 mm without hydronephrosis. Medications Administered Discontinued Medications Generic Name Dose Route Start Last Admin Trade Name Freq PRN Reason Stop Dose Admin Sodium Chloride 1,000 mls @ 999 mls/hr 06/25/23 04:15 06/25/23 06:02 Ns IV 06/25/23 05:15 Infused .Q1H1M ONE Infusion Sodium Chloride 1,000 mls @ 999 mls/hr 06/25/23 06:23 06/25/23 06:29 Ns IV 06/25/23 07:23 999 mls/hr .Q1H1M ONE Administration Ketorolac Tromethamine 30 mg 06/25/23 04:16 06/25/23 04:26 Ketorolac Tromethamine 30 Mg/Ml Vial IVPUSH 06/25/23 04:17 30 mg ONCE ONE Administration Morphine Sulfate 4 mg 06/25/23 04:16 06/25/23 04:25 Morphine Sulfate 4 Mg/Ml Cartridge IVPUSH 06/25/23 04:17 4 mg ONCE ONE Administration Protocol Ondansetron HCl 4 mg 06/25/23 04:16 06/25/23 04:25 Ondansetron Hcl 4 Mg/2 Ml Vial IVPUSH 06/25/23 04:17 4 mg ONCE ONE Administration Tamsulosin HCl 0.4 mg 06/25/23 06:23 06/25/23 06:28 Tamsulosin Hcl 0.4 Mg Capsule PO 06/25/23 06:24 0.4 mg ONCE ONE Administration Discharge Plan Discharge Clinical Impression: Calculus of distal right ureter Patient Disposition: Still a Patient Prescriptions: No Action tramadol 50 mg tablet 50 mg PO Q8H PRN (Reason: pain) Qty: 15 0RF oxycodone 5 mg tablet 5 mg PO Q8H PRN (Reason: pain) Qty: 15 0RF tamsulosin [Flomax] 0.4 mg capsule 0.4 mg PO DAILY Qty: 7 0RF ibuprofen 800 mg tablet 800 mg PO Q8H PRN (Reason: pain) Qty: 30 0RF ondansetron HCl [Zofran] 4 mg tablet 4 mg PO Q8H PRN (Reason: nausea and vomiting) Qty: 10 0RF ondansetron 4 mg tablet,disintegrating 4 mg PO Q6H PRN (Reason: nausea and vomiting) Qty: 10 0RF ibuprofen 600 mg tablet 600 mg PO Q6H PRN (Reason: pain) Qty: 20 0RF oxycodone 5 mg tablet 5 mg PO Q6H PRN (Reason: pain) Qty: 20 0RF Rx Instructions: Partial Fill upon patient request. Narcotic, no driving for 6 hours after taking tamsulosin 0.4 mg capsule 0.4 mg PO DAILY Qty: 7 0RF pyridoxine (vitamin B6) 100 mg tablet 100 mg PO DAILY Qty: 90 1RF
[2023-06-25] MEDS: ondansetron HCL 4 MG/2 ML VIAL IVPUSH ×3 (04:25→16:25)
[2023-06-25] MEDS: Morphine Sulfate 4 MG/ML CARTRIDGE IVPUSH ×3 (04:25→16:08)
[2023-06-25] MEDS: 0.9 % Sodium Chloride 1,000 ML 999 ML IV ×2 (04:26→06:29)
[2023-06-25] MEDS: Ketorolac Tromethamine 30 MG/ML VIAL IVPUSH (04:26)
[2023-06-25 04:29] LABS: Basophils Absolute Auto 0.1 X10*3/uL (0.0-0.2); Basophils Percent Auto 0.6 % (0-2); Eosinophils Absolute Auto 0.3 X10*3/uL (0.0-0.4); Eosinophils Percent Auto 1.5 % (0-4); Hematocrit 41.5 % (42.0-52.0); Hemoglobin 14.5 g/dl (14.0-18.0); Imm Gran Abs Auto 0.07 X10*3/uL (0.00-0.03); Imm Gran Pct Auto 0.4 % (0.0-0.4); Lymphocytes Absolute Auto 3.2 X10*3/uL (1.2-4.9); Lymphocytes Percent Auto 17.6 % (20-40); MANUAL DIFF FLAG NO; Mean Corpuscular HGB Conc 34.9 g/dl (31.0-36.0); Mean Corpuscular Hemoglobin 30.3 pg (27.0-33.0); Mean Corpuscular Volume 86.6 fL (80.0-98.0); Mean Platelet Volume 9.4 fL (9.4-12.4); Monocytes Absolute Auto 1.1 X10*3/uL (0.1-1.2); Monocytes Percent Auto 6.2 % (2-11); Neutrophils Absolute Auto 13.4 x10*3/uL (2.0-8.3); Neutrophils Percent Auto 73.7 % (45-73); Platelet Count 446 X10*3/uL (160-400); Red Blood Count 4.79 X10*6/uL (4.60-5.80); Red Cell Distribution Width 13.4 % (11.0-16.0); White Blood Count 18.1 X10*3/uL (4.8-10.8)
[2023-06-25 04:44] LABS: Alanine Aminotransferase 14 U/L (0-40); Albumin Level 4.6 g/dL (3.5-5.0); Alkaline Phosphatase 88 U/L (39-117); Anion Gap 14 (12-20); Aspartate Amino Transferase 18 U/L (5-37); Bilirubin Total 0.5 mg/dL (0.0-1.0); Blood Urea Nitrogen 22 mg/dL (9-16); Calcium 9.7 mg/dL (8.4-10.2); Carbon Dioxide 24 mmol/L (22-29); Chloride 108 mmol/L (96-108); Creatinine Clr Calc Pharmacy 67.1; Estimated Glomerular Filt Rate > 60; Glucose Random 123 mg/dL (60-115); Potassium 3.2 mmol/L (3.3-5.1); Sodium 143 mmol/L (135-145); Total Protein 7.5 g/dL (6.5-8.0)
--- OUTSIDE RECORDS SUMMARY | 2023-06-25 04:46 | XMS_ITS | Continuity of Care Document ---
Author Name Unknown Organization [facility] ter Address [address] [place] [id number]- Care Team Providers Care [employer] Supervisor Name Role Phone Not on Staff, PCP Primary Care Physician Unavail able Encounter [facility] [place] Date(s): 05/18/22 - 05/18/[address] [address]- Discharge Disposition: A-D/C Walkout Attending Physician: Not on Staff, Attending MD Admitting Physician: Not on Staff, Admitting MD Referring Physician: Not on Staff, Referring MD Allergies, Adverse Reactions, Alerts No Known Allergies Medications acetaminophen-oxycodone 500 mg-5 mg oral capsule 1 capsule, By Mouth, Every 6 hours, PRN as needed for pain, # 12 capsule, 0 Refills, Maintenance Start Date: 01/30/10 Status: Ordered ibuprofen 600 mg oral tablet 1 tablet = 600 mg, By Mouth, Every 6 hours, PRN as needed for pain, # 20 tablet, 0 Refills, Maintenance Start Date: 01/30/10 Status: Ordered penicillin V potassium 500 mg oral tablet 1 tablet = 500 mg, By Mouth, 4 times a day, # 28 tablet, 0 Refills, Maintenance Start Date: 01/30/10 Stop Date: 02/06/10 Status: Ordered Vital Signs Most recent to oldest [Reference Range]: 1 Oxygen Saturation [94-100 %] 100 % (05/18/22 8:29 AM) Pulse Rate [55-90 bpm] 72 bpm (05/18/22 8:29 AM) Blood Pressure [90-138/55-84 mm Hg] 179/ 75mm Hg *H* (05/18/22 8:29 AM) Respiratory Rate [16-30 br/min] 20 br/mi n (05/18/22 8:29 AM) Temperature [96.8-100.4 DegF] 97.1 DegF (05/18/22 8:29 AM) Mode of Delivery (Oxygen) Room air (05/18/22 8:29 AM) Blood pressure sites Arm, left (05/18/22 8:29 AM) Temperature Route Oral (05/18/22 8:29 AM) Weight Obtained Via UTO (05/18/22 8:34 AM) Dry Weight Obtained Via UTO (05/18/22 8:34 AM)
[2023-06-25] MEDS: Tamsulosin HCL 0.4 MG CAPSULE PO (06:28)
[2023-06-25 07:15] LABS: Appearance Urine Turbid; Color Urine Dark Yellow; Glucose Urine UA Negative (Negative); Leukocyte Esterase Urine Small (1+) (Negative); Nitrite Urine Negative (Negative); Specific Gravity - Urine >= 1.030 (1.005-1.025); UMIC TRIGGER UACC YES; Urine Blood Large (3+) (Negative); Urine Ketones 15 mg/dL (Negative); Urine Protein 100 (2+) mg/dL (Neg-Trace)
[2023-06-25 07:20] LABS: Bacteria Urine None Seen (None Seen); Hyaline Casts Urine 0-2 /LPF (0-2); RBC Urine >20 /HPF (0-2); Squamous Epithelial Cell Urine 0-2 /HPF (0-2); UACC Culture Trigger YES; WBC Urine 21-50 /HPF (0-5)
[2023-06-25] MEDS: HYDROmorphone HCl 1 MG/ML SYRINGE IVPUSH (07:48)
--- NOTE | 2023-06-25 07:57 | PC.NURSE ---
alert and oriented, respirations even and unlabored. fluids infusing, medicated per the MAR.
--- NOTE | 2023-06-25 08:55 | P.CNUR_ITS ---
History of Present Illness Consult details Consult date: 06/25/23 Narrative: Matt is a 42 year old male with h/o recurrent kidney stones comes in with acute onset of sharp pain started at 01:30 before woke up from the sleep localized to the right flank radiated to the right lower abdomen patient with nausea and vomiting no fever no chills no hematuria CTAP: KIDNEYS AND URETERS: There is a 9 mm calculus at the right ureterovesicular junction as well as a 4 mm calculus in the distal right ureter. There is mild to moderate right hydroureteronephrosis along with perinephric stranding. There is a 3 mm calculus in the mid left kidney. Review of Systems 2 Review of Systems: 10 point ROS negative other than stated in the [facility] Past Medical History Medical History Flank pain Surgical History Surgical History No significant past surgical history Social History Social History Alcohol intake: never Smoked in Last 30 Days: Yes Use of substances other than those prescribed or required for medical reasons: Yes Substance Use Type: Marijuana Advance Directives: No Advance Directives Information Provided: Yes Meds Allergies Allergy/AdvReac Type Severity Reaction Status Date / Time seafood Allergy Swelling Verified 07/10/20 14:24 Active Medications: Current Medications Levofloxacin (Levaquin) 500 mg in 100 mls @ 100 mls/hr IV PREOP ONE Stop: 06/25/23 09:41 Morphine Sulfate (Morphine Sulfate 4 Mg/Ml Cartridge) 4 mg IVPUSH Q4H PRN; Protocol PRN Reason: Pain, Moderate(Pain Scale 4-6) Physical Exam 2 Vital Signs: Vital Signs: Last Vital Signs Temp 97.8 F 06/25/23 07:51 Pulse 79 06/25/23 07:51 Resp 16 06/25/23 07:51 BP 116/69 06/25/23 07:51 Pulse Ox 97 06/25/23 07:51 O2 Del Method Room Air 06/25/23 07:51 BMI result Body Mass Index 24.2 Const: General: healthy appearing, no acute distress and well developed O rientation/consciousness: patient oriented x3 HEENT: Head: Yes normocephalic and Yes atraumatic Eyes: Conjunctivae: conjunctivae normal Neck: Neck: Yes normal visual inspection Chest: Chest palpation & inspection: normal inspection of the chest Resp: Effort & Inspection: normal respiratory effort Cardio: Rate: regular rate GI: Inspection: Yes normal to inspection Palpation (GI): Soft to palpation : General: Yes CVA tenderness (right) Back/Spine/Pelvis: Back: CVA tenderness (right) Skin: General skin exam: no rashes or lesions noted Neuro: General: patient oriented x3 Extrem: General: No pedal edema Psych: Appearance: grossly normal Affect: normal affect Results Labs 06/25/23 04:24 06/25/23 04:24 Labs: Abnormal lab results 06/25/23 06/25/23 Range/Units 04:24 07:07 WBC 18.1 H (4.8-10.8) X10*3/uL Hct 41.5 L (42.0-52.0) % Plt Count 446 H (160-400) X10*3/uL Neut % (Auto) 73.7 H (45-73) % Lymph % (Auto) 17.6 L (20-40) % Abs Immat Gran (auto) 0.07 H (0.00-0.03) X10*3/uL Absolute Neuts (auto) 13.4 H (2.0-8.3) x10*3/uL Potassium 3.2 L D (3.3-5.1) mmol/L BUN 22 H (9-16) mg/dL Random Glucose 123 H (60-115) mg/dL Ur Specific [place] >= 1.030 H (1.005-1.025) Urine Protein 100 (2+) H (Neg-Trace) mg/dL Urine Blood Large (3+) H (Negative) Ur Leukocyte Esterase Small (1+) H (Negative) Urine RBC >20 H (0-2) /HPF Urine WBC 21-50 H (0-5) /HPF Short CBC 06/25/23 Range/Units 04:24 WBC 18.1 H (4.8-10.8) X10*3/uL Hgb 14.5 (14.0-18.0) g/dl Hct 41.5 L (42.0-52.0) % Plt Count 446 H (160-400) X10*3/uL BMP 06/25/23 04:24 Sodium 143 Potassium 3.2 L D Chloride 108 Carbon Dioxide 24 BUN 22 H Creatinine 1.32 Calcium 9.7 Liver Function 06/25/23 Range/Units 04:24 Total Bilirubin 0.5 (0.0-1.0) mg/dL AST 18 (5-37) U/L ALT 14 (0-40) U/L Alkaline Phosphatase 88 (39-117) U/L Albumin 4.6 (3.5-5.0) g/dL Urine 06/25/23 Range/Units 07:07 Urine Color Dark Yellow Urine Appearance Turbid Urine pH 6.0 (5.0-9.0) Ur Specific [place] >= 1.030 H (1.005-1.025) Urine Protein 100 (2+) H (Neg-Trace) mg/dL Urine Glucose (UA) Negative (Negative) mg/dL Imaging Abdomen CT scan report/results: report reviewed and image reviewed CT scan - pelvis: report reviewed and image reviewed Additional studies: Date of Service: 06/25/23 EXAMINATION: CT ABDOMEN AND PELVIS WITHOUT CONTRAST CLINICAL INFORMATION: Right flank pain COMPARISON: 05/18/2022 TECHNIQUE: Multidetector volumetric imaging was performed from the superior aspect of the liver through the pubic symphysis. Sagittal and coronal reformatted images were obtained on the technologist's workstation. This CT examination was performed using dose optimization techniques as appropriate, variously including the following: *Automated exposure control *Adjustment of mA and/or kV according to patient size (this includes techniques or standardized protocols for targeted exams where dose is matched to indication/reason for exam; i.e. extremities or head) *Use of iterative reconstruction technique DLP: 424 mGy-cm FINDINGS: LUNG BASES: The visualized lung bases are unremarkable. LIVER, GALLBLADDER, AND BILIARY TREE: The liver is normal in size, shape, and attenuation. No focal hepatic lesion or biliary ductal dilatation is identified on this noncontrast exam. The gallbladder is unremarkable. PANCREAS: Unremarkable. SPLEEN: Unremarkable. ADRENAL GLANDS: Unremarkable. KIDNEYS AND URETERS: There is a 9 mm calculus at the right ureterovesicular junction as well as a 4 mm calculus in the distal right ureter. There is mild to moderate right hydroureteronephrosis along with perinephric stranding. No left hydronephrosis or ureteral calculus. There is a 3 mm calculus in the mid left kidney. BLADDER: Mildly distended without significant wall thickening. GASTROINTESTINAL TRACT: No evidence of bowel obstruction or significant wall thickening. The appendix is unremarkable. No free fluid or free air is seen. ABDOMINAL WALL: No significant hernia is appreciated. LYMPH NODES: Normal. VASCULAR: Unremarkable. PELVIC VISCERA: Unremarkable. OSSEOUS STRUCTURES: Scattered degenerative changes. IMPRESSION: 1. Right ureterovesicular junction calculus measuring 9 mm with mild to moderate hydroureteronephrosis. Additional 4 mm calculus in the distal right ureter. 2. Left renal calculus measuring 3 mm without hydronephrosis. Assessment and Plan (1) Calculus of distal right ureter: Status: Acute (2) Nephrolithiasis: Status: Acute (3) Hydronephrosis, right: Status: Acute Plan Cystoscopy right retrograde, right ureteral stent possible ureteroscopy laser. Time Spent With Patient Time: Total time managing care of this patient today ____ minutes. Procedures Date of Service Date of Service: 06/25/23
--- NOTE | 2023-06-25 09:23 | PC.NURSE ---
plan for surgery this afternoon approx 1600. antibiotics ordered to be given 120 mins before surgery
[2023-06-25] MEDS: Lactated Ringers 1,000 ML 125 ML IVCONT (09:43)
--- NOTE | 2023-06-25 12:09 | PC.NURSE ---
medicated per the MAR for pain with prn pain medication
--- NOTE | 2023-06-25 16:16 | HO.ANESPROP2 ---
HPI - Anesthesia Eval Consult details Narrative: Renal calculus PMFSH Active Problems Active Problems: All Active Problems (Updated 06/25/23 @ 08:58 by Panfilo Rene MD) Hydronephrosis, right (Acute) Calculus of distal right ureter (Acute) Nephrolithiasis (Acute) Past Medical History Medical History Flank pain Family History Family history of problems with anesthesia: No Surgical History Surgical History No significant past surgical history History of Problems with Anesthesia: No Social History Social History Alcohol intake: never Smoked in Last 30 Days: Yes Use of substances other than those prescribed or required for medical reasons: Yes Substance Use Type: Marijuana Advance Directives: No Advance Directives Information Provided: Yes Meds Allergies Allergy/AdvReac Type Severity Reaction Status Date / Time seafood Allergy Swelling Verified 07/10/20 14:24 Active Medications: Current Medications Lactated Ringer's (Lr) 1,000 mls @ 125 mls/hr IVCONT .Q8H JOSE Last Admin: 06/25/23 09:43 Dose: 125 mls/hr Morphine Sulfate (Morphine Sulfate 4 Mg/Ml Cartridge) 4 mg IVPUSH Q4H PRN; Protocol PRN Reason: Pain, Moderate(Pain Scale 4-6) Last Admin: 06/25/23 16:08 Dose: 4 mg Exam Exam Date and Time: June 25, 2023 1616 Height,Weight and Vital Signs: Height 5 ft 6 in Weight 68.039 kg Last Vital Signs Temp 97.7 F 06/25/23 12:08 Pulse 73 06/25/23 12:08 Resp 16 06/25/23 12:08 BP 121/72 06/25/23 12:08 Pulse Ox 97 06/25/23 12:08 O2 Del Method Room Air 06/25/23 12:08 Pertinent Lab Results Pertinent Lab Results: Laboratory Tests 06/25/23 06/25/23 04:24 07:07 WBC 18.1 H RBC 4.79 Hgb 14.5 Hct 41.5 L MCV 86.6 MCH 30.3 MCHC 34.9 RDW 13.4 Plt Count 446 H MPV 9.4 Immature Gran % (Auto) 0.4 Neut % (Auto) 73.7 H Lymph % (Auto) 17.6 L Mason % (Auto) 6.2 Eos % (Auto) 1.5 Baso % (Auto) 0.6 Lymph # (Auto) 3.2 Mason # (Auto) 1.1 Eos # (Auto) 0.3 Baso # (Auto) 0.1 Abs Immat Gran (auto) 0.07 H Absolute Neuts (auto) 13.4 H Absolute Nucleated RBC 0.000 Nucleated RBC % (auto) 0.0 Sodium 143 Potassium 3.2 L D Chloride 108 Carbon Dioxide 24 Anion Gap 14 BUN 22 H Creatinine 1.32 Estim Creat Clear Calc 67.1 Estimated GFR > 60 Random Glucose 123 H Calcium 9.7 Total Bilirubin 0.5 AST 18 ALT 14 Alkaline Phosphatase 88 Total Protein 7.5 Albumin 4.6 Urine Color Dark Yellow Urine Appearance Turbid Urine pH 6.0 Ur Specific [place] >= 1.030 H Urine Protein 100 (2+) H Urine Glucose (UA) Negative Urine Ketones 15 Urine Blood Large (3+) H Urine Nitrite Negative Ur Leukocyte Esterase Small (1+) H Urine RBC >20 H Urine WBC 21-50 H Ur Squamous Epith Cells 0-2 Urine Bacteria None Seen Hyaline Casts 0-2 Airway Mallampati Class: II TM Dist: >3cm Neck ROM: Limited Heart: rrr Lungs: cta Assessment and Plan Assessment Anesthesia Assessment: Anesthesia Plan Discussed and Chart Reviewed Final Anesthetic Review Family History of Problems with Anesthesia: No History of Problems with Anesthesia: No NPO: Yes ASA Class: II Final Preanesthetic Review: No Changes in Pt Med Stat, Meds/Allgs Chart Reviewed, Consent Obtained/Reviewed and Anes Risks/Benef Reviewed Patient Risk: Low Procedure Risk: Low Anesthetic Plan Anesthetic Plan: GA and Agree w/ Assess. and Plan Disposition: Standard PACU
--- NOTE | 2023-06-25 16:17 | HO.ANESPROP2 ---
HPI - Anesthesia Eval Consult details Narrative: For cysto special PMFSH Active Problems Active Problems: All Active Problems (Updated 06/25/23 @ 08:58 by Panfilo Rene MD) Hydronephrosis, right (Acute) Calculus of distal right ureter (Acute) Nephrolithiasis (Acute) Past Medical History Medical History Flank pain Family History Family history of problems with anesthesia: No Surgical History Surgical History No significant past surgical history History of Problems with Anesthesia: No Social History Social History Alcohol intake: never Smoked in Last 30 Days: Yes Use of substances other than those prescribed or required for medical reasons: Yes Substance Use Type: Marijuana Advance Directives: No Advance Directives Information Provided: Yes Meds Allergies Allergy/AdvReac Type Severity Reaction Status Date / Time seafood Allergy Swelling Verified 07/10/20 14:24 Active Medications: Current Medications Lactated Ringer's (Lr) 1,000 mls @ 125 mls/hr IVCONT .Q8H JOSE Last Admin: 06/25/23 09:43 Dose: 125 mls/hr Morphine Sulfate (Morphine Sulfate 4 Mg/Ml Cartridge) 4 mg IVPUSH Q4H PRN; Protocol PRN Reason: Pain, Moderate(Pain Scale 4-6) Last Admin: 06/25/23 16:08 Dose: 4 mg Exam Exam Date and Time: June 25, 2023 1617 Height,Weight and Vital Signs: Height 5 ft 6 in Weight 68.039 kg Last Vital Signs Temp 97.7 F 06/25/23 12:08 Pulse 73 06/25/23 12:08 Resp 16 06/25/23 12:08 BP 121/72 06/25/23 12:08 Pulse Ox 97 06/25/23 12:08 O2 Del Method Room Air 06/25/23 12:08 Pertinent Lab Results Pertinent Lab Results: Laboratory Tests 06/25/23 06/25/23 04:24 07:07 WBC 18.1 H RBC 4.79 Hgb 14.5 Hct 41.5 L MCV 86.6 MCH 30.3 MCHC 34.9 RDW 13.4 Plt Count 446 H MPV 9.4 Immature Gran % (Auto) 0.4 Neut % (Auto) 73.7 H Lymph % (Auto) 17.6 L [place] % (Auto) 6.2 Eos % (Auto) 1.5 Baso % (Auto) 0.6 Lymph # (Auto) 3.2 [place] # (Auto) 1.1 Eos # (Auto) 0.3 Baso # (Auto) 0.1 Abs Immat Gran (auto) 0.07 H Absolute Neuts (auto) 13.4 H Absolute Nucleated RBC 0.000 Nucleated RBC % (auto) 0.0 Sodium 143 Potassium 3.2 L D Chloride 108 Carbon Dioxide 24 Anion Gap 14 BUN 22 H Creatinine 1.32 Estim Creat Clear Calc 67.1 Estimated GFR > 60 Random Glucose 123 H Calcium 9.7 Total Bilirubin 0.5 AST 18 ALT 14 Alkaline Phosphatase 88 Total Protein 7.5 Albumin 4.6 Urine Color Dark Yellow Urine Appearance Turbid Urine pH 6.0 Ur Specific [place] >= 1.030 H Urine Protein 100 (2+) H Urine Glucose (UA) Negative Urine Ketones 15 Urine Blood Large (3+) H Urine Nitrite Negative Ur Leukocyte Esterase Small (1+) H Urine RBC >20 H Urine WBC 21-50 H Ur Squamous Epith Cells 0-2 Urine Bacteria None Seen Hyaline Casts 0-2 Airway Mallampati Class: I TM Dist: >3cm Neck ROM: Full Loose/Missing/Broken Teeth: No Heart: ok Lungs: ok Assessment and Plan Assessment Anesthesia Assessment: Anesthesia Plan Discussed and Chart Reviewed Final Anesthetic Review Family History of Problems with Anesthesia: No History of Problems with Anesthesia: No NPO: Yes ASA Class: I and Emergency Final Preanesthetic Review: No Changes in Pt Med Stat, Meds/Allgs Chart Reviewed, Consent Obtained/Reviewed and Anes Risks/Benef Reviewed Patient Risk: Low Procedure Risk: Low Anesthetic Plan Anesthetic Plan: GA and Agree w/ Assess. and Plan Disposition: Standard PACU
--- NOTE | 2023-06-25 17:19 | MHC.SHP ---
Pre-Procedural Eval Section A Date of Service: 06/25/23 The patient is an INPATIENT: Yes Changes since office visit: No Cold of Flu in the past 2 weeks, No New Medical Problems, No Changes in Medication and No Patient answered all questions The History & Physical has been completed within 30 days and I have reviewed it.: Yes Section B Chief Complaint: Leg Flank, history of kidney stones Allergies: Allergies Allergy/AdvReac Type Severity Reaction Status Date / Time seafood Allergy Swelling Verified 07/10/20 14:24 Plan Diagnosis/Plan: Unchanged (Cystoscopy, right retrograde, right ureteroscopy with laser lithotripsy and stent placement) I have reviewed the history and physical and performed a pertinent physical examination on my patient. No changes have occurred unless specified. Time Spent With Patient Time: Total time managing care of this patient today ____ minutes.
--- NOTE | 2023-06-25 18:22 | P.OP_ITS ---
Operative Note Operative Note Date of Service: 06/25/23 Narrative: PreOperative Diagnosis: Distal right ureteric stone with proximal hydroureteronephrosis Post Operative Diagnosis: Distal right ureteric stone with proximal hydroureteronephrosis Procedure: - cystoscopy, right retrograde - right dilatation of ureteric orifice under fluoroscopy - right ureteroscopy, laser lithotripsy, stone basketing - right stent placement Surgeon: Dr Robert Jensen Anesthesia: General Indications for procedure: Presentation with persistent vomiting and nausea. Imaging shows a 7 mm distal right ureteric stone with proximal hydroureteronephrosis. Creatinine 1.3, WBC 18.1 Procedure: After informed consent was verified the patient was brought to the operating room and placed in a supine position. Anesthesia was administered per protocol. The patient was placed in a modified dorsal lithotomy position and prepped and draped in a sterile fashion. Safety pause time-out and side of surgery were confirmed. Images were available for review. Antibiotic administration confirmed. A 22 Japanese cystoscope was inserted per urethra. The urethra was without abnormality. The bladder was normal in its entirety. Both ureteric orifices were seen in normal position . The right ureteric orifice was cannulated and a retrograde examination was performed. Filling defect distal portion ureter with proximal hydroureteronephrosis . A Sensor guidewire was placed up to the level of the renal pelvis under fluoroscopy. The rigid cystoscope was removed. A Round Top dilator was placed over the Sensor guidewire and used to dilate the ureteric orifice under fluoroscopy. The dilator was removed. The semi rigid ureteral scope was placed alongside the Sensor guidewire. Stone was encountered.. Using a 365 micro holmium laser fiber the stone was broken into small pieces using a combination of hammer and dusting techiques. S tone fragments were removed from the ureter using a 2.4 Japanese ZeroTip basket basket. Once the fragments were removed a decision was made to place a ureteric stent. Based on the height of the patient a 6 Fr x 26 stent was used. The string was removed from the stent prior to placement The rigid cystoscope was backloaded over the wire and advanced into the bladder. A 6 Japanese by 26 cm double-J stent was placed into the renal pelvis and bladder under a combination of fluoroscopy and direct visualization. The bladder was emptied. The patient tolerated the procedure well and was extubated in the operating room. They were transferred in stable condition to the recovery area. Pathology: stones Drains: Double J stent as described above
[2023-06-25] MEDS: Phenazopyridine HCL 100 MG TABLET PO (18:52)
[2023-06-25] MEDS: Haloperidol Lactate 5 MG/ML VIAL IVPUSH (19:24)
--- NOTE | 2023-06-27 07:49 | MHC.CM.PN ---
Patient d/c'd home before being seen by case management.
[2023-07-03 18:22] LABS: Stone Source NOT GIVEN
== END 2023-06-25 19:48 | disposition home or self-care (01) ==
LOC: HO.ED 08:38 → HO.SSS 16:44
PROVIDERS: Internal Medicine; Urology; Emergency Provider Emergency Medicine Emergency Medical Services; Visit Provider Urology
PROC: (CPT 52352; principal; 2023-06-25 17:10)
DX: N13.2 Hydronephrosis with renal and ureteral calculous obstruction (principal); Z87.442 Personal history of urinary calculi; F12.90 Cannabis use, unspecified, uncomplicated; Z79.899 Other long term (current) drug therapy
CPT/HCPCS: 52352; 36415; 74176; 80053; 81001; 82365; 85025; 87086; 88300; 96361; 96374; 96375; 96376; 99285; C1758; C1769; C2617; J1100; J1170; J1885; J1956; J2270; J2405; J3010; Q9967

== ENCOUNTER → 2023-06-25 04:45 | Outpatient (BNV) | payer MEDICAID, SELFPAY | PROVIDERS: Emergency Provider Emergency Medicine Emergency Medical Services; Visit Provider Urology | DX: N20.1 Calculus of ureter (principal); N13.30 Unspecified hydronephrosis | CPT/HCPCS: 52356; 74420; 99283 ==

== ENCOUNTER 2023-07-05 22:33 | Emergency (ER) | payer MEDICAID, SELFPAY ==
[2023-07-05 22:42] VITALS: BP 124/73; PULSE 77; RESP 16; TEMP 36.7; O2SAT 97; BMI 23.5
--- NOTE | 2023-07-05 23:03 | MHC.EDTECH ---
PATIENT NOT ABLE TO GIVE URINE SAMPLE AT THIS TIME .
[2023-07-05 23:07] LABS: Hematocrit 38.1 % (42.0-52.0); Mean Corpuscular HGB Conc 34.1 g/dl (31.0-36.0); Mean Corpuscular Hemoglobin 29.9 pg (27.0-33.0); Mean Corpuscular Volume 87.6 fL (80.0-98.0); Mean Platelet Volume 9.1 fL (9.4-12.4); Platelet Count 422 X10*3/uL (160-400); Red Blood Count 4.35 X10*6/uL (4.60-5.80); White Blood Count 13.6 X10*3/uL (4.8-10.8)
[2023-07-05 23:29] LABS: Alanine Aminotransferase 16 U/L (0-40); Albumin Level 4.1 g/dL (3.5-5.0); Alkaline Phosphatase 72 U/L (39-117); Anion Gap 11 (12-20); Aspartate Amino Transferase 16 U/L (5-37); Bilirubin Total 0.3 mg/dL (0.0-1.0); Blood Urea Nitrogen 18 mg/dL (9-16); Carbon Dioxide 22 mmol/L (22-29); Chloride 110 mmol/L (96-108); Estimated Glomerular Filt Rate > 60; Glucose Random 81 mg/dL (60-115); Lipase 19 U/L (8-78); Sodium 139 mmol/L (135-145); Total Protein 6.7 g/dL (6.5-8.0)
== END 2023-07-06 00:10 | disposition left against medical advice (07) ==
PROVIDERS: Emergency Provider Emergency Medicine
DX: R10.31 Right lower quadrant pain (principal); F17.210 Nicotine dependence, cigarettes, uncomplicated; F12.90 Cannabis use, unspecified, uncomplicated
CPT/HCPCS: 36415; 80053; 83690; 85027; 99281; 99283

== ENCOUNTER 2023-07-09 13:47 | Outpatient (REF) | payer MEDICAID, SELFPAY ==
--- NOTE | ~2023-07-09 | XR_ITS ---
EXAMINATION: XR ABDOMEN KUB CLINICAL INDICATION: Renal calculus. COMPARISON: Fluoroscopy dated 06/25/2023; prior CT examinations, most recently 06/25/2023. TECHNIQUE: 2 AP views of the abdomen and pelvis are submitted. FINDINGS: The bowel gas pattern is normal, with no evidence of ileus or obstruction. No unusual soft tissue calcifications are noted. A small stable right pelvic phlebolith is noted. A well-positioned double pigtail right ureteric stent is noted. The bones are unremarkable. XR/XR KUB IMPRESSION: A well-positioned double pigtail right ureteric stent is noted. No urinary calculus is presently appreciated radiographically.
== END 2023-07-09 13:48 | disposition home or self-care (01) ==
LOC: HO.XRAY 13:47
PROVIDERS: Visit Provider Urology
DX: N20.0 Calculus of kidney (principal)
CPT/HCPCS: 52000; 74018

== ENCOUNTER 2023-07-09 13:47 | Outpatient (AMB) | payer MEDICAID, SELFPAY ==
--- NOTE | 2023-07-09 13:55 | MHC.OFFVIS ---
Intake Intake Visit Reasons: ER cysto stent removal post op Intake Note: Patient is Present for Cystoscopy Urology Med:Tamsulosin Antibiotic Allergy: None Blood Thinner:None Pharmacy: [facility] C[facility] lot: [id number] exp:02/14/2025 Allergies seafood Allergy (Verified 07/09/23 13:56) Swelling HPI HPI Comments History of Present Illness Details Matt is a pleasant male. He seen for the following urologic conditions - nephrolithiasis Here for stent removal Unable to remove stent secondary to bladder spasm Has clot in bladder Will need removal in operating room Nephrolithiasis Recent visit through emergency room Distal right ureteric stone Intervention - 06/26 right ureteroscopy Composition - 06/26 calcium oxalate dihydrate 65% PFSH Medical History Flank pain Surgical History Hx of cystoscopy Social History Alcohol intake: never Patient Tobacco Use Status: Current everyday Tobacco user Tobacco use type: Cigarette Cigarettes Per Day: 10 Use of substances other than those prescribed or required for medical reasons: Yes Substance Use Type: Marijuana Substance Use Type Other:: DAILY MARIJUANA-LAST USE THIS MORNING Advance Directives: No Advance Directives Information Provided: Yes Recently lost weight without trying: No Nutrition Risks: No Nutritional Risk Poor oral hygiene: No Review of Systems Const Denies chills and Denies fever(s) Card Reports no additional complaints and Denies syncope Resp Denies cough GI Denies abdominal pain and Denies heartburn Reports as per HPI and Denies change in libido Neuro Denies syncope Psych Denies change in libido Endo Denies change in libido Physical Exam Const General: cooperative, healthy appearing, comfortable and no acute distress Orientation/consciousness: patient oriented x3 HEENT Face and sinus: Yes normal facial exam Mouth: moist mucous membranes Neck Neck: Yes normal visual inspection, Yes full ROM and Yes trachea midline Chest Chest palpation & inspection: normal inspection of the chest Resp Effort & Inspection: normal respiratory effort, able to speak in complete sentences and no respiratory distress GI Inspection: Yes normal to inspection Back/Spine/Pelvis Cervical Spine: normal cervical lordosis Thoracic/Lumbar Spine: thoracic and lumbar spine normal to inspection Skin General skin exam: no rashes or lesions noted Neuro General: patient oriented x3, gait normal, tone normal and moves all extremities Extrem General: Yes normal to inspection and Yes capillary refill normal Office Procedures Cystoscopy Consent Discussed risk and benefit or proposed procedure with the patient. Information consent for procedure given to the patient. Discussed technical aspects, risks, benefits and alternatives in full. Addressed all of the patient's questions and concerns regarding the procedure. The patient demonstrated knowledge and understanding. They wish to proceed with this procedure. Preparation The patient was prepped in the usual manner. A food counter worker was present and in the room. Genitalia was prepped with betadine solution in a sterile manner. Lidocaine Jelly 2% was placed into the urethra and 16Fr flexible Olympus cystoscope was inserted into the meatus after adequate lubrication. Procedure A well lubricated 16 Yoruba cystoscope was placed No abnormality noted of urethra during placement Clot within bladder, unable to fully locate stent, patient in spasm and discomfort, decision made to cease procedure [id number] DISPOSABLE SCOPE URO-G FLEXIBLE SCOPE Procedure code (CPT) selection complete Office Meds lidocaine HCl 2 % mucosal jelly in applicator Performing Provider: Robert Jensen MD Performing Location: [facility] Administered by: Denita Grimes RN on 07/09/23 14:22 Dose Route Admin Location Dispensed Lot Number Expiration Date NDC Construction Administrator 10 mL intra-urethral 10 mL nitrofurantoin monohydrate/macrocrystals 100 mg capsule Performing Provider: Robert Jensen MD Performing Location: [facility] Administered by: Denita Grimes RN on 07/09/23 14:22 Dose Route Admin Location Dispensed Lot Number Expiration Date NDC Construction Administrator 100 mg PO 1 cap naproxen 500 mg tablet Performing Provider: Robert Jensen MD Performing Location: [facility] Administered by: Denita Grimes RN on 07/09/23 14:22 Dose Route Admin Location Dispensed Lot Number Expiration Date NDC Construction Administrator 500 mg PO 1 tab Assessment & Plan Assessment & Plan (1) Bilateral nephrolithiasis: Code(s): N20.0 - Calculus of kidney Plan Plan for removal in operating room Orders: Orders AMB Cystoscopy 07/09/23 N20.0 - Calculus of kidney XR KUB 07/09/23 N20.0 - Calculus of kidney AMB Urinalysis Automated 07/09/23 Z13.9 - Encounter for screening, unspecified Patient Instructions: Imaging studies, laboratory and physical exam results were discussed and reviewed in detail. No major barriers to patient understanding were identified. An opportunity to ask questions regarding the treatment plan was provided. All questions were answered. The patient expressed understanding and agreement with the above treatment plan. The patient is aware they should contact our office by phone for worsening of their current condition or the appearance of new urologic symptoms. Compliance is encouraged with any medications and followup testing that is ordered. It is a privilege to participate in the urologic care of your patient. If you have any questions or concerns regarding treatment for the above conditions, or other urologic issues, please do not hesitate to contact me. The office telephone contact is [phone]. This note is constructed using voice recognition software. While every effort has been made to ensure accuracy senior oracle dba errors may have been included. Yours sincerely, Dr Robert Jensen MD, [facility] - Urology Providers of Expert, Compassionate Care for the Genitourinary System Coding Level of Care Code Est Pt Level 3 (93160) Diagnoses Bilateral nephrolithiasis N20.0 CPT Codes Cystoscopy - CPT: 27209-[id number] ([id number])
== END 2023-07-09 14:59 | disposition home or self-care (01) ==
PROVIDERS: Visit Provider Urology
DX: N20.0 Calculus of kidney (principal); Z96.0 Presence of urogenital implants
CPT/HCPCS: 52000

== ENCOUNTER 2023-07-14 14:31 | Day surgery (SDC) | payer MEDICAID, SELFPAY ==
--- NOTE | 2023-07-13 13:31 | HO.ANESPROP2 ---
Documented by User: Maricel Up NP 07/13/23 13:33 HPI - Anesthesia Eval Consult details Narrative: 42yo M for Cystoscopy & Stent Removal s/p cysto etc 06/2023 with GA-ETT 7 PMFSH Active Problems Active Problems: All Active Problems (Updated 07/09/23 @ 14:46 by Robert Jensen MD) Bilateral nephrolithiasis (Acute) Past Medical History Medical History Flank pain Family History Family history of problems with anesthesia: No Surgical History Surgical History Hx of cystoscopy History of Problems with Anesthesia: No Social History Social History Alcohol intake: never Substance Use Type: Marijuana Advance Directives: No Advance Directives Information Provided: Yes Meds Allergies Allergy/AdvReac Type Severity Reaction Status Date / Time seafood Allergy Swelling Verified 07/09/23 13:56 Exam Exam Date and Time: July 13, 2023 1331 Pertinent Lab Results Pertinent Lab Results: Laboratory Tests 07/05/23 22:57 WBC 13.6 H Hgb 13.0 L Hct 38.1 L Plt Count 422 H Sodium 139 Potassium 4.0 D Chloride 110 H Carbon Dioxide 22 BUN 18 H Creatinine 1.02 Assessment and Plan Assessment Anesthesia Assessment: Chart Reviewed Final Anesthetic Review Family History of Problems with Anesthesia: No History of Problems with Anesthesia: No Documented by User: Kylee Ramos MD 07/14/23 16:31 PMFSH Past Medical History Medical History Flank pain Surgical History Surgical History Hx of cystoscopy Social History Social History Alcohol intake: never Substance Use Type: Marijuana Advance Directives: No Advance Directives Information Provided: Yes Meds Allergies Allergy/AdvReac Type Severity Reaction Status Date / Time seafood Allergy Swelling Verified 07/09/23 13:56 Exam Airway Mallampati Class: II TM Dist: >3cm Neck ROM: Full Loose/Missing/Broken Teeth: No Heart: RRR Lungs: CTA Assessment and Plan Assessment Anesthesia Assessment: Anesthesia Plan Discussed Final Anesthetic Review NPO: Yes ASA Class: II Final Preanesthetic Review: Meds/Allgs Chart Reviewed, Consent Obtained/Reviewed and Anes Risks/Benef Reviewed Patient Risk: Low Procedure Risk: Low Anesthetic Plan Anesthetic Plan: GA Disposition: Standard PACU
--- NOTE | ~2023-07-14 | FL_ITS ---
EXAMINATION: XR FLUOROSCOPY WITH IMAGES CLINICAL INFORMATION: Cystoscopy, stent removal. COMPARISON: None available. TECHNIQUE: Fluoroscopy Supervised By: Dr. Robert Jensen. Fluoroscopy Time: 1.1 second. Cumulative Dose: 0.16 mGy. DAP: None available. Images: 1. FINDINGS: Single image of the pelvis submitted. Several surgical sponges. FL/FL guidance in OR IMPRESSION: Fluoroscopy guidance provided for urology procedure
[2023-07-14 16:26] VITALS: BP 139/79; PULSE 60; RESP 18; TEMP 36.3; O2SAT 99; BMI 23.5
--- NOTE | 2023-07-14 16:33 | MHC.SHP ---
Pre-Procedural Eval Section A Date of Service: 07/14/23 The patient is an INPATIENT: No Changes since office visit: No Cold of Flu in the past 2 weeks, No New Medical Problems, No Changes in Medication and No Patient answered all questions The History & Physical has been completed within 30 days and I have reviewed it.: Yes Section B Chief Complaint: Calculus of kidney Allergies: Allergies Allergy/AdvReac Type Severity Reaction Status Date / Time seafood Allergy Swelling Verified 07/09/23 13:56 Plan I have reviewed the history and physical and performed a pertinent physical examination on my patient. No changes have occurred unless specified. Time Spent With Patient Time: Total time managing care of this patient today ____ minutes.
--- NOTE | 2023-07-14 17:03 | P.OP_ITS ---
Operative Note Operative Note Date of Service: 07/14/23 Narrative: PreOperative Diagnosis: right retained ureteric stent Post Operative Diagnosis: above Procedure: cystoscopy, stent removal Surgeon: Dr Robert Jensen Anesthesia: LMA Indications for procedure: unable to tolerate stent removal in the office Procedure: After informed consent was verified the patient was brought to the operating room and placed in a supine position. Anesthesia was administered per protocol. The patient was prepped and draped in a sterile fashion. Safety pause time-out was performed. Antibiotics being given. 22 [place]e cystoscope was placed per urethra. Urethra is noted to be narrowed. Dilatation was performed prior to placement. In the bladder the stent was seen with clot obscuring its view emerging from the right ureteric orifice. Stent was grasped and removed without difficulty. Ooze from meatal area controlled with pressure dilator till patient transferred from operating room tolerated procedure well Pathology: [] Drains: []
[2023-07-14 17:13] VITALS: BP 109/53; PULSE 54; RESP 18; TEMP 36.6; O2SAT 100
[2023-07-14 17:18] VITALS: BP 124/74; PULSE 56; RESP 18; O2SAT 100
[2023-07-14 17:23] VITALS: BP 145/86; PULSE 52; RESP 18; O2SAT 100
[2023-07-14 17:28] VITALS: BP 160/90; PULSE 52; RESP 18; O2SAT 100
[2023-07-14] MEDS: Phenazopyridine HCL 100 MG TABLET PO (17:35)
[2023-07-14] MEDS: oxyCODONE HCl Immed Release 5 MG TABLET PO (17:36)
[2023-07-14] MEDS: Acetaminophen 325 MG TABLET 650 MG PO (17:36)
[2023-07-14 17:43] VITALS: BP 156/84; PULSE 53; RESP 20; TEMP 36.3; O2SAT 98
== END 2023-07-14 17:58 | disposition home or self-care (01) ==
PROVIDERS: Visit Provider Urology
PROC: (CPT 52310; principal; 2023-07-14 16:30)
DX: Z46.6 Encounter for fitting and adjustment of urinary device (principal); N32.89 Other specified disorders of bladder; R10.9 Unspecified abdominal pain; F12.90 Cannabis use, unspecified, uncomplicated
CPT/HCPCS: 52310; J1100; J1956; J2250; J2405; J3010; Q9967

== ENCOUNTER 2024-05-09 12:12 | Outpatient (AMB) | payer SELFPAY ==
--- NOTE | 2024-05-09 12:48 | MHC.OFFWIV ---
Intake Vital Signs 05/09/24 12:49 Height 5 ft 7 in Weight 160 lb BMI 25.1 BP 122/70 Blood Pressure Location Lt brachial Position Sitting Pulse 68 Pulse Source Pulse Oximeter Temp 98.0 F Temp Source Oral Pulse Oximetry (%) 98 Intake Visit Reasons: lower back and middle back pain Intake Note: pt is here for lower back pain, due to work injury lifting heavy metal Patient Tobacco Use Status: Current everyday Tobacco user Allergies seafood Allergy (Verified 05/09/24 12:49) Swelling Do you need a note to return to daycare/school/sports/work: Yes HPI HPI Comments History of Present Illness Details 43 y/o male patient who presents to the walk in clinic with c/o Tail bone pain since last night. He does factory work, lifting heavy boxes of metals. Yesterday evening he lifted heavy boxes non stop for 2 hours with no break in between. Reports pain with sitting, walking and standing. Describes the pain as burning. Denies urinary or bowel symptoms. PFSH Medical History Flank pain Surgical History Hx of cystoscopy Social History Alcohol intake: never Patient Tobacco Use Status: Current everyday Tobacco user Tobacco use type: Cigarette Cigarettes Per Day: 10 Substance Use Type: Marijuana Review of Systems Const All systems reviewed & are unremarkable except as noted in HPI and below Physical Exam Vital Signs: Last Vital Signs Temp 98.0 F 05/09/24 12:49 Pulse 68 05/09/24 12:49 BP 122/70 05/09/24 12:49 Pulse Ox 98 05/09/24 12:49 BMI result Body Mass Index 25.1 Const General: no acute distress; No comfortable Nutritional Appearance: thin Orientation/consciousness: patient oriented x3 Back/Spine/Pelvis Back: back tenderness Thoracic/Lumbar Spine: lumbar spinal tenderness Sacrum: tenderness midline Coccyx: Coccyx tenderness present on direct palpation Neuro Other: Shuffling gait with slight limping. General: patient oriented x3 and moves all extremities Psych Speech and movement: Normal speech and movement present Assessment & Plan Assessment & Plan (1) Coccyx contusion: Code(s): S30.0XXA - Contusion of lower back and pelvis, initial encounter Qualifiers: Encounter type: initial encounter Qualified Code(s): S30.0XXA - Contusion of lower back and pelvis, initial encounter Plan: IceHot Ordered Xray Rest Take medicines as directed. Orders: Orders XR sacrum coccyx min 2V Today S30.0XXA - Contusion of lower back and pelvis, initial encounter Medications: New acetaminophen 1,000 mg (2 x 500 mg) PO Q6H PRN 30 caps 0RF pain S30.0XXA - Contusion of lower back and pelvis, initial encounter meloxicam 15 mg PO DAILY 30 tabs 0RF S30.0XXA - Contusion of lower back and pelvis, initial encounter prednisone 20 mg PO DAILY 10 tabs 0RF S30.0XXA - Contusion of lower back and pelvis, initial encounter lidocaine 5% leave on most painful area for up to 12 hrs 1 patch topical DAILY 30 ea 0RF S30.0XXA - Contusion of lower back and pelvis, initial encounter Coding Level of Care Code Est Pt Level 4 (10964) Diagnoses Contusion of coccyx, initial encounter S30.0XXA Encounter type: initial encounter Time Spent (min) 20
[2024-05-09 12:49] VITALS: BP 122/70; PULSE 68; TEMP 36.7; O2SAT 98; BMI 25.1
== END 2024-05-09 13:54 | disposition home or self-care (01) ==
PROVIDERS: Visit Provider Nurse Practitioner Family
DX: S30.0XXA Contusion of lower back and pelvis, initial encounter (principal); Z04.2 Encounter for examination and observation following work accident
CPT/HCPCS: 99214

== ENCOUNTER 2024-05-09 13:16 | Outpatient (REF) | payer OTHER, SELFPAY ==
--- NOTE | ~2024-05-09 | XR_ITS ---
EXAMINATION: XR SACRUM AND COCCYX CLINICAL INFORMATION: Contusion of lower back and pelvis, tailbone pain, lifting heavy boxes at work for more than 2 hours nonstop. COMPARISON: KUB of 07/09/2023. TECHNIQUE: 3 views of the sacrum and coccyx. FINDINGS: Bone mineralization is normal. Bilateral sacroiliac joints and pubic symphysis are preserved. Degenerative changes on limited images of the lumbosacral junction could be evaluated with dedicated radiographs of the lumbar spine. Redemonstration of small calcification in the right hemipelvis, likely a phlebolith. XR/XR sacrum coccyx min 2V IMPRESSION: 1. Degenerative changes on limited images of the lumbosacral junction couldn't be evaluated with dedicated radiographs of the lumbar spine. 2. No gross displaced fracture of the sacrum appreciated. Additional imaging with CT scan or MRI could be considered for further evaluation if there is clinical concern. This study was presented today May 09, 2024 for interpretation. Stat results provided at this time as requested by referring provider.
== END 2024-05-09 13:17 | disposition home or self-care (01) ==
LOC: HO.HMGCX 13:16
PROVIDERS: Visit Provider Nurse Practitioner Family
DX: S30.0XXA Contusion of lower back and pelvis, initial encounter (principal)
CPT/HCPCS: 72220

== ENCOUNTER 2024-08-03 09:45 | Emergency (ER) | payer SELFPAY ==
[2024-08-03 09:56] VITALS: BP 130/70; PULSE 82; RESP 16; TEMP 36.5; O2SAT 98; BMI 23.8
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
[2024-08-03] MEDS: Tetracaine HCl/PF 0.5% Oph Sol 4 ML DROPS 1 DROP EYE-RIGHT (11:29)
[2024-08-03] MEDS: Fluorescein Sodium STRIP 1 STRIP EYE-RIGHT (11:29)
[2024-08-03 11:51] VITALS: BP 130/70; PULSE 82; RESP 16; TEMP 36.5; O2SAT 98
== END 2024-08-03 11:52 | disposition home or self-care (01) ==
PROVIDERS: Emergency Provider Emergency Medicine Emergency Medical Services
DX: S05.01XA Injury of conjunctiva and corneal abrasion without foreign body, right eye, initial encounter (principal); X58.XXXA Exposure to other specified factors, initial encounter; Y93.89 Activity, other specified; Y92.810 Car as the place of occurrence of the external cause; Y99.9 Unspecified external cause status; H57.89 Other specified disorders of eye and adnexa
CPT/HCPCS: 99282; 99283